=== PATIENT | male | born 1990 | race African-American/Black ===

== ENCOUNTER 2019-07-07 12:43 | Emergency (ER) | payer SELFPAY ==
[~2019-07-07] VITALS: Ht 182.9 cm; Wt 99.6 kg
--- NOTE | 2019-07-07 13:04 | PHYS DOC ---
Adult General Chief Complaint Chief Complaint: ABDOMINAL PAIN HPI HPI Patient is a 28 year old male with history of childhood asthma who presents with complaint of abdominal pain. Patient complaining of right lower quadrant pain that started since this morning when he went to work at 5 AM as a constant and patient pain with radiation to right inguinal area that gradually getting worse and rated his pain 10 over 10. Patient denies nausea, vomiting, diarrhea and constipation, urinary symptoms, fever and chills, history of the same pain. Patient states he did not eat today but did not have chance to eat but feels hu ngry. Patient didn't take any pain medication. Review of Systems Review of Systems Constitutional: Denies fever or chills [] Eyes: Denies change in visual acuity, redness, or eye pain [] HENT: Denies nasal congestion or sore throat [] Respiratory: Denies cough or shortness of breath [] Cardiovascular: No additional information not addressed in HPI [] GI: Reports abdominal pain, nausea, denies vomiting, bloody stools or diarrhea [] : Denies dysuria or hematuria [] Musculoskeletal: Denies back pain or joint pain [] Integument: Denies rash or skin lesions [] Neurologic: Denies headache, focal weakness or sensory changes [] Endocrine: Denies polyuria or polydipsia [] All other systems were reviewed and found to be within normal limits, except as documented in this note. Current Medications Current Medications Current Medications Medications (Trade) Dose Ordered Sig/Aquiles Start Time Stop Time Status Last Admin Dose Admin Fentanyl Citrate (Fentanyl 2ml Vial) 50 mcg 1X ONCE 07/07/19 13:30 07/07/19 13:33 DC 07/07/19 14:00 50 MCG Ondansetron HCl (Zofran) 4 mg 1X ONCE 07/07/19 13:30 07/07/19 13:33 DC 07/07/19 13:30 4 MG Sodium Chloride 1,000 ml @ 1,000 mls/hr Q1H 07/07/19 13:30 07/07/19 14:29 DC 07/07/19 14:01 1,000 MLS/HR Allergies Allergies Allergies Coded Allergies Type Severity Reaction Last Updated Verified Penicillins Allergy Intermediate 07/07/19 Yes amoxicillin Allergy Intermediate 07/07/19 Yes Physical Exam Physical Exam Constitutional: Well developed, well nourished, mild distress, non-toxic appea cindy. [] HENT: Normocephalic, atraumatic. Eyes: PERRLA, EOMI, conjunctiva normal, no discharge. [] Neck: Normal range of motion, no tenderness, supple, no stridor. [] Cardiovascular:Heart rate regular rhythm, no murmur [] Lungs & Thorax: Bilateral breath sounds clear to auscultation [] Abdomen: Bowel sounds normal, soft, right lower quadrant guarding without tenderness, no masses, no pulsatile masses. [] Skin: Warm, dry, no erythema, no rash. [] Back: No tenderness, no CVA tenderness. [] Extremities: No tenderness, no cyanosis, no clubbing, ROM intact, no edema. [] Neurologic: Alert and oriented X 3, no focal deficits noted. [] Psychologic: Affect normal, judgement normal, mood normal. [] Current Patient Data Vital Signs Vital Signs Date Time Temp Pulse Resp B/P (MAP) Pulse Ox O2 Delivery O2 Flow Rate FiO2 07/07/19 14:47 16 99 07/07/19 13:18 97.8 66 115/76 (89) Room Air 97.8 Lab Values Laboratory Tests Test 07/07/19 13:12 07/07/19 14:48 White Blood Count 7.1 x10^3/uL (4.0-11.0) Red Blood Count 4.70 x10^6/uL (4.30-5.70) Hemoglobin 14.0 g/dL (13.0-17.5) Hematocrit 41.7 % (39.0-53.0) Mean Corpuscular Volume 89 fL (79-100) Mean Corpuscular Hemoglobin 30 pg (25-35) Mean Corpuscular Hemoglobin Concent 34 g/dL (31-37) Red Cell Distribution Width 14.1 % (11.5-14.5) Platelet Count 203 x10^3/uL (140-400) Neutrophils (%) (Auto) 71 % (31-73) Lymphocytes (%) (Auto) 17 % (24-48) L Monocytes (%) (Auto) 11 % (0-9) H Eosinophils (%) (Auto) 0 % (0-3) Basophils (%) (Auto) 0 % (0-3) Neutrophils # (Auto) 5.1 x10^3/uL (1.8-7.7) Lymphocytes # (Auto) 1.2 x10^3/uL (1.0-4.8) Monocytes # (Auto) 0.8 x10^3/uL (0.0-1.1) Eosinophils # (Auto) 0.0 x10^3/uL (0.0-0.7) Basophils # (Auto) 0.0 x10^3/uL (0.0-0.2) Sodium Level 142 mmol/L (136-145) Potassium Level 3.6 mmol/L (3.5-5.1) Chloride Level 105 mmol/L (98-107) Carbon Dioxide Level 27 mmol/L (21-32) Anion Gap 10 (6-14) Blood Urea Nitrogen 12 mg/dL (8-26) Creatinine 1.0 mg/dL (0.7-1.3) Estimated GFR (Cockcroft-Gault) 107.7 BUN/Creatinine Ratio 12 (6-20) Glucose Level 84 mg/dL (70-99) Calcium Level 9.7 mg/dL (8.5-10.1) Total Bilirubin 0.3 mg/dL (0.2-1.0) Aspartate Amino Transferase (AST) 24 U/L (15-37) Alanine Aminotransferase (ALT) 29 U/L (16-63) Alkaline Phosphatase 75 U/L (46-116) Total Protein 7.7 g/dL (6.4-8.2) Albumin 4.3 g/dL (3.4-5.0) Albumin/Globulin Ratio 1.3 (1.0-1.7) Lipase 82 U/L (73-393) Urine Collection Type Void Urine Color Yellow Urine Clarity Cloudy Urine pH 6.0 Urine Specific [place] >=1.030 Urine Protein Negative mg/dL (NEG-TRACE) Urine Glucose (UA) Negative mg/dL (NEG) Urine Ketones (Stick) 15 mg/dL (NEG) Urine Blood Negative (NEG) Urine Nitrite Negative (NEG) Urine Bilirubin Negative (NEG) Urine Urobilinogen Dipstick 1.0 mg/dL (0.2 mg/dL) Urine Leukocyte Esterase Negative (NEG) Urine RBC 0 /HPF (0-2) Urine WBC Occ /HPF (0-4) Urine Squamous Epithelial Cells Occ /LPF Urine Bacteria 0 /HPF (0-FEW) Urine Mucus Mod /LPF Urine Opiates Screen Neg (NEG) Urine Methadone Screen Neg (NEG) Urine Barbiturates Neg (NEG) Urine Phencyclidine Screen Neg (NEG) Urine Amphetamine/Methamphetamine Neg (NEG) Urine Benzodiazepines Screen Neg (NEG) Urine Cocaine Screen Neg (NEG) Urine Cannabinoids Screen Pos (NEG) Urine Ethyl Alcohol Neg (NEG) Laboratory Tests 07/07/19 13:12 Laboratory Tests 07/07/19 13:12 EKG EKG [] Radiology/Procedures Radiology/Procedures [facility] [address] [place] [address] IMAGING REPORT Signed PATIENT: LYNN SHRESTHA ACCOUNT: [id number] : 04/16/1960 LOCATION: ER AGE: 59 SEX: F EXAM STATUS: REG ER ORD. PHYSICIAN: HONEY RAJAN MD REASON: cough and shortness of breath PROCEDURE: CHEST PA & LATERAL EXAM: CHEST 2 VIEWS. HISTORY: Cough and shortness of breath. COMPARISON: 11/27/2017. FINDINGS: Frontal and lateral views of the chest are obtained. Hyperinflation is consistent with chronic obstructive pulmonary disease. There are no confluent infiltrates. There is no pneumothorax or pleural effusion. The heart is not enlarged. IMPRESSION: 1. Chronic obstructive pulmonary disease. No confluent infiltrates. Electronically signed by: Selina Mcgarry MD (07/07/2019 1:18 PM) [facility] DICTATED and SIGNED BY: JD MCGARRY MD DATE: 07/07/19 1318 Course & Med Decision Making Course & Med Decision Making Pertinent Labs and Imaging studies reviewed. (See chart for details) Evaluation of patient in ER showed 28-year-old male patient with complaining of right lower quadrant pain since this morning without anorexia and other symptoms. Patient had guarding of right lower quadrant and treated with IV fluid, Zofran and fentanyl with improvement of his pain. CBC, CMP, UA and CT abdomen and pelvis was unremarkable. UDS was positive for marijuana. Plan discharge patient home with diagnosis of muscular abdominal pain. Dragon Disclaimer Dragon Disclaimer This electronic medical record was generated, in whole or in part, using a voice recognition dictation system. Departure Departure Impression: Primary Impression: Right lower quadrant pain Additional Impressions: Muscle strain Marijuana abuse Disposition: HOME, SELF-CARE (at 1534) Condition: IMPROVED Referrals: NO PCP (PCP) Patient Instructions: Abdominal Pain (Nonspecific), Muscle Strain Additional Instructions: Drink plenty of liquids Follow-up with your primary care physician in 3-5 days Return to ER if not getting better Apply ice on the affected area Thank you for visiting [facility]. We appreciate you trusting us with your care. If any additional problems come up don't hesitate to return to visit us. Please follow up with your primary care provider so they can plan additional care if needed and know about the problem that you had. If symptoms worsen come back to the Emergency Department. Any concerning symptoms that start such as chest pain, shortness of air, weakness or numbness on one side of the body, running high fevers or any other concerning symptoms return to the ER. Scripts Naproxen (NAPROSYN) 500 Mg Tablet 1 TAB PO BID for pain, #20 TAB Prov: HONEY RAJAN MD 07/07/19 Cyclobenzaprine Hcl (CYCLOBENZAPRINE HCL) 10 Mg Tablet 1 TAB PO TID, #21 TAB Prov: HONEY RAJAN MD 07/07/19 Problem Qualifiers HONEY RAJAN MD Jul 07, 2019 13:04
[2019-07-07] MEDS ORDERED: ONDANSETRON PF 4 MG/2 ML VIAL. IV ONE (13:30)
[2019-07-07] MEDS ORDERED: IV NORMAL SALINE 1000ML BAG 1,000 ML IV SCH (13:30)
[2019-07-07] MEDS ORDERED: fentaNYL PF VIAL 100 MCG/2 ML VIAL IV ONE (13:30)
[2019-07-07 13:44] LABS: BASO % 0 % (0-3); EOS % 0 % (0-3); HEMATOCRIT 41.7 % (39.0-53.0); LYMPH # 1.2 x10^3/uL (1.0-4.8); LYMPH % 17 % (24-48); MEAN CORPUSCULAR HEMOGLOBIN 30 pg (25-35); MEAN CORPUSCULAR HGB CONC 34 g/dL (31-37); MEAN CORPUSCULAR VOLUME 89 fL (79-100); MONO # 0.8 x10^3/uL (0.0-1.1); MONO % 11 % (0-9); NEUT # 5.1 x10^3/uL (1.8-7.7); NEUT % 71 % (31-73); PLATELET COUNT 203 x10^3/uL (140-400); RED CELL DISTRIBUTION WIDTH 14.1 % (11.5-14.5); WHITE BLOOD COUNT 7.1 x10^3/uL (4.0-11.0)
[2019-07-07 13:49] LABS: CALCIUM 9.7 mg/dL (8.5-10.1); GFR 107.7; POTASSIUM 3.6 mmol/L (3.5-5.1)
[2019-07-07 13:54] LABS: ALBUMIN 4.3 g/dL (3.4-5.0); ALBUMIN/GLOBULIN RATIO 1.3 (1.0-1.7); TOTAL BILIRUBIN 0.3 mg/dL (0.2-1.0); TOTAL PROTEIN 7.7 g/dL (6.4-8.2)
--- NOTE | 2019-07-07 14:02 | RAD ---
CT Abdomen and Pelvis without contrast History: Right lower quadrant pain Technique: Noncontrast CT imaging was performed of the abdomen and pelvis. Multiplanar images are reviewed. Exposure: One or more of the following individualized dose reduction techniques were utilized for this examination: 1. Automated exposure control 2. Adjustment of the mA and/or kV according to patient size 3. Use of iterative reconstruction technique. Comparison: January 13, 2013 Findings: No urolithiasis or hydronephrosis is identified. Accurate evaluation of abdominal visceral organs is limited without intravenous contrast. There is no obvious abnormality of the spleen, liver, or pancreas. Gallbladder is present without obvious intraluminal abnormality by CT. There is no adrenal nodularity. Accurate evaluation of bowel is limited without oral contrast. There is no significant free air, free fluid, bowel dilatation. Normal caliber appendix is visualized without adjacent inflammatory-type change. There are some nonspecific sclerotic foci of the proximal bilateral femurs, may be due to bone islands. Impression: 1. No acute abnormality is identified, no CT evidence of acute appendicitis and no urolithiasis identified. Electronically signed by: Narinder Rivera MD (07/07/2019 1:59 PM) [id number]
[2019-07-07 14:58] LABS: BILIRUBIN,URINE NEGATIVE (NEG); CLARITY,URINE CLOUDY; COLOR,URINE YELLOW; NITRITE,URINE NEGATIVE (NEG); PROTEIN,URINE NEGATIVE (NEG-TRACE)
[2019-07-07 15:07] LABS: BACTERIA,URINE 0 /HPF (0-FEW); RBC,URINE 0 /HPF (0-2); SQUAMOUS EPITHELIAL CELL,UR OCC /LPF; WBC,URINE OCC /HPF (0-4)
[2019-07-07 15:15] LABS: AMPHETAMINE/METHAMPHETAMINE NEG (NEG); BARBITURATES NEG (NEG); BENZODIAZEPINES NEG (NEG); CANNABINOIDS POS (NEG); COCAINE NEG (NEG); METHADONE NEG (NEG); OPIATES NEG (NEG); PHENCYCLIDINE NEG (NEG)
[2019-07-07] MEDS ORDERED: NAPR-683 PO (15:36)
[2019-07-07] MEDS ORDERED: CYCL10TA2 PO (15:36)
[2019-07-07 15:47] VITALS: BP 127/64
== END 2019-07-07 15:47 | disposition home or self-care (01) ==
LOC: ER 12:43
DX: S39.011A Strain of muscle, fascia and tendon of abdomen, initial encounter (principal); R10.31 Right lower quadrant pain; F12.90 Cannabis use, unspecified, uncomplicated; Z88.0 Allergy status to penicillin; Z88.1 Allergy status to other antibiotic agents; X58.XXXA Exposure to other specified factors, initial encounter; Y93.89 Activity, other specified; Y92.89 Other specified places as the place of occurrence of the external cause; Y99.8 Other external cause status
CPT/HCPCS: 36415; 74176; 80053; 80307; 81001; 83690; 85025; 96374; 96375; 99285; J2405; J3010; J7030

== ENCOUNTER 2019-07-10 08:17 | Emergency (ER) | payer SELFPAY ==
[~2019-07-10] VITALS: Ht 182.9 cm; Wt 97.0 kg
[~2019-07-10 08:17] MED LIST: CYCL10TA2 PO; NAPR-683 PO
[2019-07-10] MEDS ORDERED: fentaNYL PF VIAL 100 MCG/2 ML VIAL IVP ONE (09:30)
--- NOTE | 2019-07-10 09:30 | PHYS DOC ---
Past Medical History Past Medical History: Asthma Past Surgical History: No Surgical History Additional Information: SMOKES 1 CIGARETTE A DAY Alcohol Use: Occasionally Adult General Chief Complaint Chief Complaint: FLANK PAIN HPI HPI Patient is a 28 year old male who presents with was here July [address] abd pelvis was done and there were no acute findings. Patient was sent home with Flexeril and Naproxen. He states these medications are not helping. He is here complaining of worsening pain stating that the right lower abdominal pain radiates around into his flank and down into his right groin. He states his whole right lower abdomen side and right flank will have a burning sensation. Rates his pain a 9 out of 10. He states that is sharp and shooting sometimes burning or feel sore. He denies doing any activity out of the usual or injuries. Patient does smoke marijuana. Review of Systems Review of Systems GI: RLQ abdominal pain, denies nausea, vomiting, bloody stools or diarrhea [] Musculoskeletal: Right flank back pain or denies joint pain [] All other systems were reviewed and found to be within normal limits, except as documented in this note. Current Medications Current Medications Current Medications Medications (Trade) Dose Ordered Sig/Aquiles Start Time Stop Time Status Last Admin Dose Admin Acetaminophen/ Hydrocodone Bitart (Lortab 5/325) 1 tab 1X ONCE 07/10/19 11:15 07/10/19 11:16 DC 07/10/19 11:27 1 TAB Fentanyl Citrate (Fentanyl 2ml Vial) 50 mcg 1X ONCE 07/10/19 09:30 07/10/19 09:31 DC 07/10/19 10:03 50 MCG Ketorolac Tromethamine (Toradol 30mg Vial) 30 mg 1X ONCE 07/10/19 11:15 07/10/19 11:16 Cancel Allergies Allergies Allergies Coded Allergies Type Severity Reaction Last Updated Verified Penicillins Allergy Intermediate 07/07/19 Yes amoxicillin Allergy Intermediate 07/07/19 Yes Physical Exam Physical Exam Constitutional: Well developed, well nourished, no acute distress, non-toxic appearance. [] HENT: Normocephalic, atraumatic, bilateral external ears normal, oropharynx moist, no oral exudates, nose normal. [] Eyes: PERRLA, EOMI, conjunctiva normal, no discharge. [] Neck: Normal range of motion, no tenderness, supple, no stridor. [] Cardiovascular:Heart rate regular rhythm, no murmur [] Lungs & Thorax: Bilateral breath sounds clear to auscultation [] Abdomen: Bowel sounds normal, soft, RLQ tenderness, no masses, no pulsatile masses. [] Skin: Warm, dry, no erythema, no rash. [] Back: No tenderness, no CVA tenderness. [] Extremities: No tenderness, no cyanosis, no clubbing, ROM intact, no edema. [] Neurologic: Alert and oriented X 3, normal motor function, normal sensory function, no focal deficits noted. [] Psychologic: Affect normal, judgement normal, mood normal. [] Current Patient Data Vital Signs Vital Signs Date Time Temp Pulse Resp B/P (MAP) Pulse Ox O2 Delivery O2 Flow Rate FiO2 07/10/19 11:27 19 100 Room Air 07/10/19 11:01 54 129/88 (102) 07/10/19 08:52 98.0 98.0 Lab Values Laboratory Tests Test 07/10/19 09:22 07/10/19 10:45 White Blood Count 5.3 x10^3/uL (4.0-11.0) Red Blood Count 4.51 x10^6/uL (4.30-5.70) Hemoglobin 13.2 g/dL (13.0-17.5) Hematocrit 40.2 % (39.0-53.0) Mean Corpuscular Volume 89 fL (79-100) Mean Corpuscular Hemoglobin 29 pg (25-35) Mean Corpuscular Hemoglobin Concent 33 g/dL (31-37) Red Cell Distribution Width 14.5 % (11.5-14.5) Platelet Count 184 x10^3/uL (140-400) Neutrophils (%) (Auto) 69 % (31-73) Lymphocytes (%) (Auto) 19 % (24-48) L Monocytes (%) (Auto) 11 % (0-9) H Eosinophils (%) (Auto) 1 % (0-3) Basophils (%) (Auto) 0 % (0-3) Neutrophils # (Auto) 3.6 x10^3/uL (1.8-7.7) Lymphocytes # (Auto) 1.0 x10^3/uL (1.0-4.8) Monocytes # (Auto) 0.6 x10^3/uL (0.0-1.1) Eosinophils # (Auto) 0.0 x10^3/uL (0.0-0.7) Basophils # (Auto) 0.0 x10^3/uL (0.0-0.2) Sodium Level 144 mmol/L (136-145) Potassium Level 3.9 mmol/L (3.5-5.1) Chloride Level 108 mmol/L (98-107) H Carbon Dioxide Level 31 mmol/L (21-32) Anion Gap 5 (6-14) L Blood Urea Nitrogen 9 mg/dL (8-26) Creatinine 1.0 mg/dL (0.7-1.3) Estimated GFR (Cockcroft-Gault) 107.7 BUN/Creatinine Ratio 9 (6-20) Glucose Level 85 mg/dL (70-99) Calcium Level 8.7 mg/dL (8.5-10.1) Total Bilirubin 0.2 mg/dL (0.2-1.0) Aspartate Amino Transferase (AST) 19 U/L (15-37) Alanine Aminotransferase (ALT) 24 U/L (16-63) Alkaline Phosphatase 61 U/L (46-116) Total Protein 6.6 g/dL (6.4-8.2) Albumin 3.9 g/dL (3.4-5.0) Albumin/Globulin Ratio 1.4 (1.0-1.7) Urine Collection Type Void Urine Color Yellow Urine Clarity Clear Urine pH 8.5 Urine Specific [place] >=1.030 Urine Protein 30 mg/dL (NEG-TRACE) Urine Glucose (UA) Negative mg/dL (NEG) Urine Ketones (Stick) Negative mg/dL (NEG) Urine Blood Negative (NEG) Urine Nitrite Negative (NEG) Urine Bilirubin Negative (NEG) Urine Urobilinogen Dipstick 0.2 mg/dL (0.2 mg/dL) Urine Leukocyte Esterase Negative (NEG) Urine RBC Occ /HPF (0-2) Urine WBC 1-4 /HPF (0-4) Urine Squamous Epithelial Cells Few /LPF Urine Bacteria 0 /HPF (0-FEW) Urine Mucus Marked /LPF Laboratory Tests 07/10/19 09:22 Laboratory Tests 07/10/19 09:22 EKG EKG [] Radiology/Procedures Radiology/Procedures [] Impressions: [facility] [address] [place] [address] IMAGING REPORT Signed PATIENT: DONNIE MERRITT ACCOUNT: [id number] : 1990 LOCATION: ER AGE: 28 SEX: M EXAM STATUS: REG ER ORD. PHYSICIAN: CARITO BAIG APRN REASON: Flank pain PROCEDURE: RENAL COMPLETE BILATERAL EXAM: Renal sonogram. HISTORY: Flank pain. TECHNIQUE: Sonographic imaging of the kidneys and bladder was performed. COMPARISON: CT dated 07/07/2019. FINDINGS: The kidneys are normal in size. No solid or cystic renal lesion is seen. There is no hydronephrosis. The prevoid bladder volume is 17 cc. IMPRESSION: Sonographically unremarkable kidneys. Electronically signed by: Meri Martinez MD (07/10/2019 12:09 PM) [facility] DICTATED and SIGNED BY: MERI MARTINEZ MD DATE: 07/10/19 1200 Course & Med Decision Making Course & Med Decision Making Alert and oriented. States a full clear sentences. Skin pink warm and dry. Abdomen is soft but tender at right lower quadrant. No CVA tenderness. He denies any testicular pain, nausea, vomiting, diarrhea, fever, no discharge, dysuria, chest pain, soa, dizziness, headache, visula changes, weakness. Blood work unremarkable. Urinalysis unremarkable. Renal ultrasound unremarkable. Patient to follow up with primary care provider. I have spoken with Dr. Kern about this patient's exam findings and care plan. Exam: Scrotum: Normal Hernia: None Testes/Epid: Non-tender w/ normal lie Cremaster: Reflex intact Lymph: No inguinal lymphadenopathy Discharge: None Dragon Disclaimer Dragon Disclaimer This electronic medical record was generated, in whole or in part, using a voice recognition dictation system. Departure Departure Impression: Primary Impression: Flank pain Additional Impression: Abdominal pain Disposition: HOME, SELF-CARE Condition: STABLE Referrals: NO PCP (PCP) Patient Instructions: Abdominal Pain (Nonspecific), Flank Pain, [id number] Additional Instructions: Follow-up with her primary care provider. Continue taking medications such as the Flexeril and naproxen as prescribed. Drink plenty of fluids. Problem Qualifiers Additional Impression: Abdominal pain Abdominal location: right lower quadrant Qualified Codes: R10.31 - Right lower quadrant pain CARITO BAIG APRN Jul 10, 2019 09:30
[2019-07-10 09:43] LABS: BASO % 0 % (0-3); EOS % 1 % (0-3); HEMATOCRIT 40.2 % (39.0-53.0); HEMOGLOBIN 13.2 g/dL (13.0-17.5); LYMPH % 19 % (24-48); MEAN CORPUSCULAR HEMOGLOBIN 29 pg (25-35); MEAN CORPUSCULAR HGB CONC 33 g/dL (31-37); MEAN CORPUSCULAR VOLUME 89 fL (79-100); MONO # 0.6 x10^3/uL (0.0-1.1); MONO % 11 % (0-9); NEUT # 3.6 x10^3/uL (1.8-7.7); NEUT % 69 % (31-73); PLATELET COUNT 184 x10^3/uL (140-400); RED BLOOD COUNT 4.51 x10^6/uL (4.30-5.70); RED CELL DISTRIBUTION WIDTH 14.5 % (11.5-14.5); WHITE BLOOD COUNT 5.3 x10^3/uL (4.0-11.0)
[2019-07-10 09:51] LABS: CALCIUM 8.7 mg/dL (8.5-10.1); GFR 107.7; POTASSIUM 3.9 mmol/L (3.5-5.1)
[2019-07-10 09:59] LABS: ALBUMIN 3.9 g/dL (3.4-5.0); ALBUMIN/GLOBULIN RATIO 1.4 (1.0-1.7); TOTAL BILIRUBIN 0.2 mg/dL (0.2-1.0); TOTAL PROTEIN 6.6 g/dL (6.4-8.2)
[2019-07-10 11:10] LABS: BILIRUBIN,URINE NEGATIVE (NEG); CLARITY,URINE CLEAR; COLOR,URINE YELLOW; NITRITE,URINE NEGATIVE (NEG); PH,URINE 8.5; PROTEIN,URINE 30 mg/dL (NEG-TRACE); UROBILINOGEN,URINE 0.2 mg/dL (0.2 mg/dL)
[2019-07-10] MEDS ORDERED: HYDROcodone/APAP 5/325MG 1 TAB TABLET PO ONE (11:15)
[2019-07-10] MEDS ORDERED: KETOROLAC 30 MG/ML VIAL. IVP ONE (11:15)
[2019-07-10 11:32] LABS: SQUAMOUS EPITHELIAL CELL,UR FEW /LPF
[2019-07-10 11:33] LABS: BACTERIA,URINE 0 /HPF (0-FEW); RBC,URINE OCC /HPF (0-2)
--- NOTE | 2019-07-10 12:12 | RAD ---
EXAM: Renal sonogram. HISTORY: Flank pain. TECHNIQUE: Sonographic imaging of the kidneys and bladder was performed. COMPARISON: CT dated 07/07/2019. FINDINGS: The kidneys are normal in size. No solid or cystic renal lesion is seen. There is no hydronephrosis. The prevoid bladder volume is 17 cc. IMPRESSION: Sonographically unremarkable kidneys. Electronically signed by: Meri Foss MD (07/10/2019 12:09 PM) [facility] [place]
[2019-07-10 12:47] VITALS: BP 137/81
== END 2019-07-10 12:59 | disposition home or self-care (01) ==
LOC: ER 08:17
DX: R10.31 Right lower quadrant pain (principal); J45.909 Unspecified asthma, uncomplicated; F17.210 Nicotine dependence, cigarettes, uncomplicated; Z88.0 Allergy status to penicillin; Z88.1 Allergy status to other antibiotic agents
CPT/HCPCS: 36415; 76770; 80053; 81001; 85025; 96374; 99285; J3010

== ENCOUNTER 2019-10-19 10:23 | Emergency (ER) | payer SELFPAY ==
[~2019-10-19] VITALS: Ht 180.3 cm; Wt 102.0 kg
[2019-10-19 10:36] VITALS: BP 133/61
[2019-10-19] MEDS ORDERED: CLIN300C8 PO (10:51)
--- NOTE | 2019-10-19 10:51 | PHYS DOC ---
Past Medical History Past Medical History: Asthma, Other Additional Past Medical Histor: TENSION HEADACHES Past Surgical History: No Surgical History Smoking Status: Former Smoker Alcohol Use: Occasionally General Adult EDM: Chief Complaint: ABSCESS HPI: HPI: Patient is a 28-year-old male who presents with what he describes as an abscess in his left upper inner thigh. He states it is been draining recently. He denies any pain with a bowel movement. He has not had any fever chills or sweats. [] Review of Systems: Review of Systems: Constitutional: Denies fever or chills. [] Eyes: Denies change in visual acuity. [] HENT: Denies nasal congestion or sore throat. [] Respiratory: Denies cough or shortness of breath. [] Cardiovascular: Denies chest pain or edema. [] GI: Denies abdominal pain, nausea, vomiting, bloody stools or diarrhea. [] : Denies dysuria. [] Musculoskeletal: Denies back pain or joint pain. [] Integument: Per HPI [] Neurologic: Denies headache, focal weakness or sensory changes. [] Endocrine: Denies polyuria or polydipsia. [] Lymphatic: Denies swollen glands. [] Psychiatric: Denies depression or anxiety. [] Heart Score: Risk Factors: Risk Factors: DM, Current or recent (<one month) smoker, HTN, HLP, family history of CAD, obesity. Risk Scores: Score 0 - 3: 2.5% MACE over next 6 weeks - Discharge Home Score 4 - 6: 20.3% MACE over next 6 weeks - Admit for Clinical Observation Score 7 - 10: 72.7% MACE over next 6 weeks - Early Invasive Strategies Allergies: Allergies: Allergies Coded Allergies Type Severity Reaction Last Updated Verified Penicillins Allergy Intermediate 07/07/19 Yes amoxicillin Allergy Intermediate 07/07/19 Yes Physical Exam: PE: Constitutional: Well developed, well nourished, no acute distress, non-toxic appearance. [] HENT: Normocephalic, atraumatic, bilateral external ears normal, oropharynx moist, no oral exudates, nose normal. [] Eyes: PERRLA, EOMI, conjunctiva normal, no discharge. [] Neck: Normal range of motion, no tenderness, supple, no stridor. [] Cardiovascular:Heart rate regular rhythm, no murmur [] Lungs & Thorax: Bilateral breath sounds clear to auscultation [] Abdomen: Bowel sounds normal, soft, no tenderness, no masses, no pulsatile masses. [] Skin: I did not appreciate any significance abscess in the area there was nothing tender or indurated in the perineal or perirectal area [] Back: No tenderness, no CVA tenderness. [] Extremities: No tenderness, no cyanosis, no clubbing, ROM intact, no edema. [] Neurologic: Alert and oriented X 3, normal motor function, normal sensory function, no focal deficits noted. [] Psychologic: Affect normal, judgement normal, mood normal. [] Current Patient Data: Vital Signs: Vital Signs Date Time Temp Pulse Resp B/P (MAP) Pulse Ox O2 Delivery O2 Flow Rate FiO2 10/19/19 10:36 97.7 83 18 133/61 (85) 97 Room Air 97.7 EKG: EKG: [] Radiology/Procedures: Radiology/Procedures: [] Course & Med Decision Making: Course & Med Decision Making Pertinent Labs and Imaging studies reviewed. (See chart for details) [] Dragon Disclaimer: Dragon Disclaimer: This electronic medical record was generated, in whole or in part, using a voice recognition dictation system. Departure Departure Impression: Primary Impression: Abscess of left leg Disposition: HOME, SELF-CARE Condition: STABLE Referrals: NO PCP (PCP) Patient Instructions: Abscess Additional Instructions: Warm soaks are beneficial. It is extremely important that you take your antibiotics. If the pain or swelling worsens please return to the emergency de partment as this could be a sign that it needs to be opened with a procedure called an incision and drainage Scripts Clindamycin Hcl (CLINDAMYCIN HCL) 300 Mg Capsule 1 CAP PO QID for Infection, #40 CAP Prov: RUBIO BALL DO 10/19/19 RUBIO BALL DO October 19, 2019 10:51
[2019-10-19] MEDS ORDERED: AZITHROMYCIN 250 MG TABLET. PO ONE (11:15)
[2019-10-19] MEDS ORDERED: cefTRIAXone IM 250 MG VIAL IM ONE (11:15)
== END 2019-10-19 12:00 | disposition home or self-care (01) ==
LOC: ER 10:23
DX: L02.416 Cutaneous abscess of left lower limb (principal); J45.909 Unspecified asthma, uncomplicated; Z87.891 Personal history of nicotine dependence; Z88.1 Allergy status to other antibiotic agents; Z88.0 Allergy status to penicillin
CPT/HCPCS: 96372; 99283; J0696

== ENCOUNTER 2019-11-21 19:30 | Emergency (ER) | payer SELFPAY ==
[~2019-11-21] VITALS: Ht 182.9 cm; Wt 101.0 kg
[~2019-11-21 19:30] MED LIST changes: +CLIN300C8 PO
[2019-11-21 19:53] VITALS: BP 132/60
[2019-11-21 20:14] LABS: BASO % 0 % (0-3); EOS # 0.1 x10^3/uL (0.0-0.7); EOS % 1 % (0-3); HEMATOCRIT 40.4 % (39.0-53.0); HEMOGLOBIN 13.6 g/dL (13.0-17.5); LYMPH # 1.7 x10^3/uL (1.0-4.8); LYMPH % 22 % (24-48); MEAN CORPUSCULAR HEMOGLOBIN 31 pg (25-35); MEAN CORPUSCULAR HGB CONC 34 g/dL (31-37); MEAN CORPUSCULAR VOLUME 91 fL (79-100); MONO # 0.5 x10^3/uL (0.0-1.1); MONO % 6 % (0-9); NEUT # 5.7 x10^3/uL (1.8-7.7); NEUT % 71 % (31-73); PLATELET COUNT 185 x10^3/uL (140-400); RED BLOOD COUNT 4.44 x10^6/uL (4.30-5.70); RED CELL DISTRIBUTION WIDTH 14.2 % (11.5-14.5); WHITE BLOOD COUNT 8.1 x10^3/uL (4.0-11.0)
[2019-11-21] MEDS ORDERED: IV NORMAL SALINE 1000ML BAG 1,000 ML IV ONE (20:15)
[2019-11-21] MEDS ORDERED: ONDANSETRON PF 4 MG/2 ML VIAL. IV ONE (20:15)
[2019-11-21 20:16] LABS: BILIRUBIN,URINE NEGATIVE (NEG); CLARITY,URINE TURBID; COLOR,URINE YELLOW; NITRITE,URINE NEGATIVE (NEG); PROTEIN,URINE NEGATIVE (NEG-TRACE)
[2019-11-21 20:20] LABS: BACTERIA,URINE 0 /HPF (0-FEW); RBC,URINE 0 /HPF (0-2)
[2019-11-21 20:21] LABS: AMORPHOUS SEDIMENT,UR PRESENT /HPF; SQUAMOUS EPITHELIAL CELL,UR OCC /LPF
[2019-11-21 20:25] LABS: CALCIUM 8.2 mg/dL (8.5-10.1); CREATININE 1.3 mg/dL (0.7-1.3); GFR 79.5; POTASSIUM 3.6 mmol/L (3.5-5.1)
[2019-11-21 20:30] LABS: ALBUMIN 3.1 g/dL (3.4-5.0); ALBUMIN/GLOBULIN RATIO 1.2 (1.0-1.7); TOTAL BILIRUBIN 0.1 mg/dL (0.2-1.0); TOTAL PROTEIN 5.7 g/dL (6.4-8.2)
[2019-11-21] MEDS ORDERED: ONDA-84 PO (21:47)
[2019-11-21] MEDS ORDERED: VENTOLIN HFA18 GM INH (21:47)
[2019-11-21] MEDS ORDERED: AZIT250T6 PO (21:47)
--- NOTE | 2019-11-21 21:49 | PHYS DOC ---
Past Medical History Past Medical History: Asthma, Bronchitis, IBS Additional Past Medical Histor: TENSION HEADACHES Past Surgical History: No Surgical History Smoking Status: Current Every Day Smoker Alcohol Use: Occasionally General Adult EDM: Chief Complaint: ABDOMINAL PAIN HPI: HPI: Patient is a 28 year old AA male who presents to the emergency department with complaints of intermittent abdominal pain for the last 2 weeks with nausea, vomiting, and diarrhea for the last 2 to 3 days, and feeling like he cannot catch his breath for the last 2 days. Patient states that he began not feeling well approximately 3 weeks ago. He reported feeling fatigued and achy at that time. He denies any recent travel or contact with anyone with known COVID-19 diagnosis. Patient states he currently lives in a hotel and he is working [employer]. He reports that the pain in his abdomen is a sharp crampy pain that happens all over his entire abdomen. He denies any chest pain, palpitations, sore throat, bloody stools, hematemesis, or rash. Patient currently rates his abdominal pain a 10 out of 10 on the pain scale he denies any alleviating factors and reports that the pain just comes and goes in waves. Review of Systems: Review of Systems: Constitutional: Reports tactile fevers recently Eyes: Denies change in visual acuity. [] HENT: Denies nasal congestion or sore throat. [] Respiratory: Reports dry cough and shortness of breath. [] Cardiovascular: Denies chest pain or edema. [] GI: See HPI : Denies dysuria. [] Musculoskeletal: Reports body aches Integument: Denies rash. [] Neurologic: Denies headache, focal weakness or sensory changes. [] Lymphatic: Denies swollen glands. [] Psychiatric: Denies depression or anxiety. [] Heart Score: Risk Factors: Risk Factors: DM, Current or recent (<one month) smoker, HTN, HLP, family history of CAD, obesity. Risk Scores: Score 0 - 3: 2.5% MACE over next 6 weeks - Discharge Home Score 4 - 6: 20.3% MACE over next 6 weeks - Admit for Clinical Observation Score 7 - 10: 72.7% MACE over next 6 weeks - Early Invasive Strategies Current Medications: Current Medications Medications (Trade) Dose Ordered Sig/Aquiles Start Time Stop Time Status Last Admin Dose Admin Ondansetron HCl (Zofran) 4 mg 1X ONCE 11/21/19 20:15 11/21/19 20:16 DC 11/21/19 20:14 4 MG Sodium Chloride 1,000 ml @ 1,000 mls/hr 1X ONCE 11/21/19 20:15 11/21/19 21:14 DC 11/21/19 20:14 1,000 MLS/HR Allergies: Allergies: Allergies Coded Allergies Type Severity Reaction Last Updated Verified Penicillins Allergy Intermediate 07/07/19 Yes amoxicillin Allergy Intermediate 07/07/19 Yes Physical Exam: PE: Constitutional: Well developed, well nourished, mild distress, ill appearance HENT: Normocephalic, atraumatic, bilateral external ears normal, oropharynx moist, no oral exudates, nose normal. [] Eyes: PERRLA, EOMI, conjunctiva normal, no discharge. [] Neck: Normal range of motion, no stridor. [] Cardiovascular:Heart rate regular rhythm Lungs & Thorax: Bilateral breath sounds clear to auscultation in upper lobes bilaterally, diminished with expiratory wheezes in bilateral lower lobes, no retractions, regular rate [] Abdomen: Bowel sounds normal, soft, no tenderness, no masses, no pulsatile masses. [] Skin: Warm, dry, no erythema, no rash. [] Back: No tenderness, no CVA tenderness. [] Extremities: No cyanosis, no clubbing, ROM intact, no edema. [] Neurologic: Alert and oriented X 3, no focal deficits noted. [] Psychologic: Affect normal, judgement normal, mood normal. [] Current Patient Data: Labs: Laboratory Tests Test 11/21/19 19:39 11/21/19 19:52 Urine Collection Type Unknown Urine Color Yellow Urine Clarity Turbid Urine pH 8.0 (<5.0-8.0) Urine Specific Dunellen 1.025 (1.000-1.030) Urine Protein Negative mg/dL (NEG-TRACE) Urine Glucose (UA) Negative mg/dL (NEG) Urine Ketones (Stick) Negative mg/dL (NEG) Urine Blood Negative (NEG) Urine Nitrite Negative (NEG) Urine Bilirubin Negative (NEG) Urine Urobilinogen Dipstick 1.0 mg/dL (0.2 mg/dL) Urine Leukocyte Esterase Negative (NEG) Urine RBC 0 /HPF (0-2) Urine WBC 1-4 /HPF (0-4) Urine Squamous Epithelial Cells Occ /LPF Urine Amorphous Sediment Present /HPF Urine Bacteria 0 /HPF (0-FEW) Urine Mucus Mod /LPF White Blood Count 8.1 x10^3/uL (4.0-11.0) Red Blood Count 4.44 x10^6/uL (4.30-5.70) Hemoglobin 13.6 g/dL (13.0-17.5) Hematocrit 40.4 % (39.0-53.0) Mean Corpuscular Volume 91 fL (79-100) Mean Corpuscular Hemoglobin 31 pg (25-35) Mean Corpuscular Hemoglobin Concent 34 g/dL (31-37) Red Cell Distribution Width 14.2 % (11.5-14.5) Platelet Count 185 x10^3/uL (140-400) Neutrophils (%) (Auto) 71 % (31-73) Lymphocytes (%) (Auto) 22 % (24-48) L Monocytes (%) (Auto) 6 % (0-9) Eosinophils (%) (Auto) 1 % (0-3) Basophils (%) (Auto) 0 % (0-3) Neutrophils # (Auto) 5.7 x10^3/uL (1.8-7.7) Lymphocytes # (Auto) 1.7 x10^3/uL (1.0-4.8) Monocytes # (Auto) 0.5 x10^3/uL (0.0-1.1) Eosinophils # (Auto) 0.1 x10^3/uL (0.0-0.7) Basophils # (Auto) 0.0 x10^3/uL (0.0-0.2) Sodium Level 142 mmol/L (136-145) Potassium Level 3.6 mmol/L (3.5-5.1) Chloride Level 107 mmol/L (98-107) Carbon Dioxide Level 27 mmol/L (21-32) Anion Gap 8 (6-14) Blood Urea Nitrogen 10 mg/dL (8-26) Creatinine 1.3 mg/dL (0.7-1.3) Estimated GFR (Cockcroft-Gault) 79.5 BUN/Creatinine Ratio 8 (6-20) Glucose Level 102 mg/dL (70-99) H Calcium Level 8.2 mg/dL (8.5-10.1) L Total Bilirubin 0.1 mg/dL (0.2-1.0) L Aspartate Amino Transferase (AST) 22 U/L (15-37) Alanine Aminotransferase (ALT) 29 U/L (16-63) Alkaline Phosphatase 70 U/L (46-116) Total Protein 5.7 g/dL (6.4-8.2) L Albumin 3.1 g/dL (3.4-5.0) L Albumin/Globulin Ratio 1.2 (1.0-1.7) Laboratory Tests 11/21/19 19:52 Laboratory Tests 11/21/19 19:52 Vital Signs: Vital Signs Date Time Temp Pulse Resp B/P (MAP) Pulse Ox O2 Delivery O2 Flow Rate FiO2 11/21/19 19:53 98.7 79 24 132/60 (84) 99 Room Air 98.7 EKG: EKG: [] Radiology/Procedures: Radiology/Procedures: PROCEDURE: CHEST AP ONLY Exam: Chest one view INDICATION: Cough TECHNIQUE: Frontal view of the chest Comparisons: None FINDINGS: The cardiomediastinal silhouette and pulmonary vessels are within normal limits. The lung and pleural spaces are clear. IMPRESSION: No acute cardiopulmonary process. Course & Med Decision Making: Course & Med Decision Making Pertinent Labs and Imaging studies reviewed. (See chart for details) Patient is a 28-year-old -Swiss male who presented to the emergency department with complaints of not feeling well for 3 weeks, intermittent abdominal pain for 2 weeks, and nausea/vomiting/ diarrhea and shortness of breath for the last 2 to 3 days. Work-up included a CBC, CMP, and UA that revealed no acute findings. He was given a liter of normal saline, and 4 mg of Zofran. He reported relief of nausea after these medications. Based off of patient's symptoms and length of the duration of his illness COVID- 19 cannot be ruled out. Chest x-ray reveals no acute findings. COVID-19 test is pending. Prescription written for a Z-Gallo, albuterol inhaler, and Zofran. Patient instructed to go home quarantine until he knows the results of his COVID-19 test. Recommend clear fluids for 24 hours then advance diet to bland foods as tolerated. Follow-up with primary care doctor if symptoms persist, return to the ER symptoms worsen. Patient verbalized an understanding of home care, medications, follow-up, and return to ED instructions and was in agreement with the plan of care. COVID-19 CRITERIA: The patient was evaluated during the global COVID-19 pandemic, and that diagnosis was suspected/considered upon their initial presentation. Their evaluation, treatment and testing was consistent with current guidelines for patients who present with complaints or symptoms that may be related to COVID-19. [] Dragon Disclaimer: Dragon Disclaimer: This electronic medical record was generated, in whole or in part, using a voice recognition dictation system. Departure Departure Impression: Primary Impression: Abdominal pain Qualified Codes: R10.84 - Generalized abdominal pain Additional Impressions: Nausea, vomiting, and diarrhea Person under investigation for COVID-19 Bilateral wheezing Viral respiratory illness Disposition: HOME, SELF-CARE Condition: STABLE Referrals: LESLI WEI MD (PCP) Patient Instructions: Diet for Diarrhea, Adult, Nausea and Vomiting, Easy-to-Re ad, Upper Respiratory Infection, Adult, [id number], Viral Infections, [id number] Additional Instructions: Fill the prescriptions and take them as directed. Thank you for visiting [facility]. We appreciate you trusting us with your care. If any additional problems come up please don't hesitate to return to visit us. Follow up with your primary care provider so they can plan additional care if needed and know about the problem that you had today. If symp toms worsen come back to the Emergency Department. Any concerning symptoms that start such as chest pain, shortness of air, weakness or numbness on one side of the body, running high fevers or any other concerning symptoms return to the ER. You have a viral syndrome which may include symptoms like muscle aches, fevers, chills, runny nose, cough, sneezing, sore throat, nausea, vomiting, or diarrhea. One of the potential viruses that you may have is SARS-CoV-2, the virus that causes COVID-19, also known as the Coronavirus. You are just as likely to have a different viral infection such as the common cold, flu, etc. Most patients with the Coronavirus have mild symptoms and recover on their own. Resting, staying hydrated, and sleep based on known cases can be helpful. As of todays visit, you are well enough to go home and treat your symptoms with oral fluids and over the counter medications. Coronavirus testing was performed today the results will not be available for possibly up to 3-4 days. If your result is positive you will be contacted. You need to isolate and quarantine yourself until the results of the test are known. Please follow the following precautions at home: 1. Stay home except to get medical care. 2. As advised by the CDC, we recommend that you stay in your home and minimize contact with other people. We do not want you to spread the infection. 3. Those who are older or have significant medical issues may have more severe symptoms from this infection. We recommend self-isolation FOR AT LEAST 7 DAYS after your 1st day of symptoms. AFTER you feel better please wait AT LEAST ANOTHER WEEK before returning to regular activities and being around other people. 4. IF you become sicker and have difficulty breathing, chest pain, are unable to eat/drink, severe vomiting, diarrhea, or weakness you may need to return to the Emergency Department. 5. You should restrict activities outside of your home, except for getting medical care. DO NOT go to work, school, or public areas. Avoid using public transportation, ride sharing, or taxis. 6. Separate yourself from other people in your home. You should use a separate bathroom if possible. 7. Avoid sharing personal household items such as dishes, cups, eating utensils, towels, etc. 8. Clean all high touch surfaces every day (door knobs, counter tops, etc). Use a household cleaning spray or wipe per label instructions. 9. Clean your hands often. Wash your hands with soap and water for at least 20 seconds. 10. Cover your mouth and nose when you cough or sneeze. 11. Throw used tissues in the trash and immediately wash your hands. For additional resources please visit the CDC website or the [place] [facility] (714-377-5497), you may also call 211 for further information. Scripts Ondansetron Hcl (ONDANSETRON HCL) 4 Mg Tablet 1 TAB PO PRN Q6HRS PRN for NAUSEA/VOMITING for 3 Days, #10 TAB 0 Refills Prov: DALTON RAMSEY POLITICAL REPORTER 11/21/19 Azithromycin (AZITHROMYCIN TABLET) 250 Mg Tablet 1 PKG PO UD for 5 Days, #6 TAB 0 Refills 2 the first day followed by 1 for days 2-5 Prov: DALTON RAMSEY APRN 11/21/19 Albuterol Sulfate (VENTOLIN HFA INHALER) 18 Gm Hfa.aer.ad 2 PUFF INH Q4HRS PRN for WHEEZING for 30 Days, #1 INHALER 0 Refills Prov: DALTON RAMSEY APRN 11/21/19 Justicifation of Admission Dx: Justifications for Admission: Justification of Admission Dx: N/A COVID-19 Assessment: COVID-19 Patient Risks: Age 65 or older: No Sign of co-morbidity: No Exp to person + for COVID: No Exp to PUI: No Travel from affected area: No Lower respiratory symptoms: Yes Fever: No PPE Use: Full PPE with N95 mask or PAPR: Yes DALTON RAMSEY APRN Nov 21, 2019 21:49
--- NOTE | 2019-11-21 21:49 | RAD ---
Exam: Chest one view INDICATION: Cough TECHNIQUE: Frontal view of the chest Comparisons: None FINDINGS: The cardiomediastinal silhouette and pulmonary vessels are within normal limits. The lung and pleural spaces are clear. IMPRESSION: No acute cardiopulmonary process. Electronically signed by: Roc Matta MD (11/21/2019 9:46 PM) [id number]
== END 2019-11-21 22:17 | disposition home or self-care (01) ==
LOC: ER 19:30
DX: R10.84 Generalized abdominal pain (principal); Z20.828 Contact with and (suspected) exposure to other viral communicable diseases; R11.2 Nausea with vomiting, unspecified; R19.7 Diarrhea, unspecified; B33.8 Other specified viral diseases; J45.909 Unspecified asthma, uncomplicated; F17.200 Nicotine dependence, unspecified, uncomplicated; Z88.0 Allergy status to penicillin; Z88.1 Allergy status to other antibiotic agents
CPT/HCPCS: 36415; 71045; 80053; 81001; 85025; 96361; 96374; 99284; J2405; J7030; U0003

== ENCOUNTER 2020-01-30 13:21 | Emergency (ER) | payer SELFPAY ==
[~2020-01-30] VITALS: Ht 182.9 cm; Wt 105.0 kg
[~2020-01-30 13:21] MED LIST changes: +AZIT250T6 PO; +ONDA-84 PO; +VENTOLIN HFA18 GM INH
[2020-01-30] MEDS ORDERED: MORPHINE SULFATE 4 MG/ML VIAL. IV ONE (13:45)
[2020-01-30] MEDS ORDERED: ONDANSETRON PF 4 MG/2 ML VIAL. IVP ONE (13:45)
--- NOTE | 2020-01-30 13:50 | PHYS DOC ---
Past Medical History Past Medical History: Asthma, Bronchitis, IBS Additional Past Medical Histor: TENSION HEADACHES Past Surgical History: No Surgical History Smoking Status: Never Smoker Alcohol Use: None General Adult EDM: Chief Complaint: CHEST PAIN HPI: HPI: Patient is a 29 year old male presents with a chief complaint of left-sided chest pain that began 2 hours ago. Pain described as sharp worse with deep breaths and radiates to his left arm. Patient has some throbbing pain still persistent left arm. Patient has some shortness of breath. Pain is currently severe in intensity. Patient does have shortness of breath that feels like maybe his asthma. Review of Systems: Review of Systems: Constitutional: Denies fever or chills. [] Eyes: Denies change in visual acuity. [] HENT: Denies nasal congestion or sore throat. [] Respiratory: Denies cough but has shortness of breath. [] Cardiovascular: Complains of chest pain but no edema GI: Complains of left upper quadrant abdominal pain, but no nausea, vomiting, bloody stools or diarrhea. [] : Denies dysuria. [] Musculoskeletal: Denies back pain or joint pain. [] Integument: Denies rash. [] Neurologic: Denies headache, focal weakness or sensory changes. [] Endocrine: Denies polyuria or polydipsia. [] Lymphatic: Denies swollen glands. [] Psychiatric: Denies depression or anxiety. [] Heart Score: HEART Score for Chest Pain: HEART Score for Chest Pain Response (Comments) Value History Slighlty/Non-Suspicious 0 ECG Nonspecific Repolarizatio 1 Age < 45 0 Risk Factors 1 or 2 Risk Factors 1 Total 2 Risk Factors: Risk Factors: DM, Current or recent (<one month) smoker, HTN, HLP, family history of CAD, obesity. Risk Scores: Score 0 - 3: 2.5% MACE over next 6 weeks - Discharge Home Score 4 - 6: 20.3% MACE over next 6 weeks - Admit for Clinical Observation Score 7 - 10: 72.7% MACE over next 6 weeks - Early Invasive Strategies Family History: Family History: Heart disease in the 40s Allergies: Allergies: Allergies Coded Allergies Type Severity Reaction Last Updated Verified Penicillins Allergy Intermediate 07/07/19 Yes amoxicillin Allergy Intermediate 07/07/19 Yes Physical Exam: PE: Constitutional: Well developed, well nourished, no acute distress, non-toxic appearance. [] HENT: Normocephalic, atraumatic, bilateral external ears normal, no trismus nose normal. [] Eyes: PERRLA, EOMI, conjunctiva normal, no discharge. [] Neck: Normal range of motion, no tenderness, supple, no stridor. [] Cardiovascular:Heart rate regular rhythm, peripheral pulses intact, cap refill brisk Lungs & Thorax: No respiratory distress, diminished breath sounds, tender to palpate left chest wall Abdomen: soft, tender to palpate left upper quadrant without guarding or rebound, no masses, no pulsatile masses. [] Skin: Warm, dry, no erythema, no rash. [] Back: No tenderness, no CVA tenderness. [] Extremities: No tenderness, no cyanosis, no clubbing, ROM intact, no edema. [] Neurologic: Alert and oriented X 3, normal motor function, normal sensory function, no focal deficits noted. [] Psychologic: Affect normal, judgement normal, mood normal. [] Current Patient Data: Labs: Laboratory Tests Test 01/30/20 13:55 White Blood Count 7.9 x10^3/uL Red Blood Count 4.36 x10^6/uL Hemoglobin 13.2 g/dL Hematocrit 39.8 % Mean Corpuscular Volume 91 fL Mean Corpuscular Hemoglobin 30 pg Mean Corpuscular Hemoglobin Concent 33 g/dL Red Cell Distribution Width 13.4 % Platelet Count 172 x10^3/uL Neutrophils (%) (Auto) 75 % Lymphocytes (%) (Auto) 18 % Monocytes (%) (Auto) 7 % Eosinophils (%) (Auto) 1 % Basophils (%) (Auto) 0 % Neutrophils # (Auto) 5.9 x10^3/uL Lymphocytes # (Auto) 1.4 x10^3/uL Monocytes # (Auto) 0.5 x10^3/uL Eosinophils # (Auto) 0.0 x10^3/uL Basophils # (Auto) 0.0 x10^3/uL Prothrombin Time 12.2 SEC Prothromb Time International Ratio 0.9 Activated Partial Thromboplast Time 27 SEC Sodium Level 142 mmol/L Potassium Level 3.8 mmol/L Chloride Level 108 mmol/L Carbon Dioxide Level 28 mmol/L Anion Gap 6 Blood Urea Nitrogen 6 mg/dL Creatinine 1.1 mg/dL Estimated GFR (Cockcroft-Gault) 95.8 BUN/Creatinine Ratio 5 Glucose Level 97 mg/dL Calcium Level 8.1 mg/dL Total Bilirubin 0.2 mg/dL Aspartate Amino Transf (AST/SGOT) 22 U/L Alanine Aminotransferase (ALT/SGPT) 25 U/L Alkaline Phosphatase 64 U/L Troponin I Quantitative < 0.017 ng/mL TH-Ogv-P-Type Natriuretic Peptide 47 pg/mL Total Protein 5.6 g/dL Albumin 2.8 g/dL Albumin/Globulin Ratio 1.0 Lipase 155 U/L Current Medications Medications (Trade) Dose Ordered Sig/Aquiles Route PRN Reason Start Time Stop Time Status Last Admin Dose Admin Morphine Sulfate (Morphine Sulfate) 4 mg 1X ONCE IV 01/30/20 13:45 01/30/20 13:58 DC 01/30/20 14:19 Ondansetron HCl (Zofran) 4 mg 1X ONCE IVP 01/30/20 13:45 01/30/20 13:58 DC 01/30/20 14:17 Iohexol (Omnipaque 350 Mg/ml) 100 ml 1X ONCE IV 01/30/20 15:00 01/30/20 15:01 DC 01/30/20 15:20 Info (CONTRAST GIVEN -- Rx MONITORING) 1 each PRN DAILY PRN MC SEE COMMENTS 01/30/20 15:00 02/01/20 14:59 Enoxaparin Sodium (Lovenox 100mg Syringe) 100 mg 1X ONCE SQ 01/30/20 16:30 01/30/20 16:31 DC Vital Signs: Vital Signs Date Time Temp Pulse Resp B/P (MAP) Pulse Ox O2 Delivery O2 Flow Rate FiO2 01/30/20 13:31 98.6 65 20 130/59 (82) 99 Room Air 98.6 EKG: EKG: [] EKG interpreted by me normal sinus rhythm with a rate of 62 normal axis normal intervals ST elevations diffusely consistent with early repolarization Radiology/Procedures: Radiology/Procedures: [][facility] [address] [place] [address] IMAGING REPORT Signed PATIENT: DONNIE MERRITT ACCOUNT: [id number] : 1990 LOCATION: ER AGE: 29 SEX: M EXAM STATUS: PRE ER ORD. PHYSICIAN: BISHOP DICKERSON MD REASON: LEFT CP PROCEDURE: PORTABLE CHEST 1V EXAMINATION: PORTABLE CHEST 1V CLINICAL HISTORY: Reason: LEFT CP / Spl. Instructions: / History: EXAM DATE/TIME: 01/30/2020 1:44 PM COMPARISON: 11/21/2019 FINDINGS: Lines, tubes, and devices: None. Cardiomediastinal silhouette: Within normal limits. Lungs and pleura: No evidence of focal airspace consolidation or pleural effusion. Pulmonary vasculature unremarkable. Bones and soft tissues: No acute osseous abnormality. IMPRESSION: No evidence of acute cardiopulmonary abnormality or significant interval change. Electronically signed by: Terry Shah DO (01/30/2020 2:07 PM) [id number] DICTATED and SIGNED BY: TERRY SHAH DO DATE: 01/30/20 1407 [facility] [address] [place], [place] [id number] IMAGING REPORT Signed PATIENT: DONNIE MERRITT ACCOUNT: [id number] : 1990 LOCATION: ER AGE: 29 SEX: M EXAM STATUS: REG ER ORD. PHYSICIAN: BISHOP DICKERSON MD REASON: CHEST PAIN-DISSECTION PROTOCOL PER ORDER PROCEDURE: CT ANGIO CHEST W ABD PEL W/ STUDY: CT angiography of the chest, abdomen and pelvis with and without contrast INDICATION: Chest pain. Dissection. COMPARISON: Correlation is made to the CT abdomen/pelvis from 07/07/2019 TECHNIQUE: Helical CT angiography of the chest, abdomen and pelvis with imaging performed both prior to and after the intravenous administration of 90 cc Omnipaque 350. Multiplanar 3D MIP reconstructions were obtained. One or more of the following individualized dose reduction techniques were utilized for this examination: 1. Automated exposure control 2. Adjustment of the mA and/or kV according to patient size 3. Use of iterative reconstruction technique. FINDINGS: VASCULATURE: The visualized great vessels are patent. No aortic dissection or aneurysm throughout the chest or abdomen. Widely patent iliofemoral system. Patent celiac, SMA, renal artery and MIGUEL origins. A few pulmonary emboli identified within segmental/subsegmental branches to both lower lobes. No main or lobar pulmonary embolism. The interventricular septum is midline but not overtly deviated. CHEST/ABDOMEN/PELVIS: Mildly prominent right hilar lymph node on image 36 series 5 measuring around 1 cm short axis. This is favored reactive given patient age. No pericardial effusion. No confluent infiltrate or suspicious pulmonary nodule. No pleural effusion or pneumothorax. The visualized thyroid is unremarkable. No axillary adenopathy. Gynecomastia. No acute or aggressive osseous process. Hepatic steatosis. Unremarkable gallbladder, pancreas, spleen and adrenal glands. The kidneys are within normal limits. Unremarkable bladder and prostate. Mild volume well-formed stool burden. Normal appendix. Mildly thickened small bowel wall at the left upper quadrant not infrequently seen in this region. No bowel obstruction. Unremarkable stomach. No lymphadenopathy. No free fluid or gas. Bone islands are noted such as within both femoral heads. Bilateral cam-type deformities, larger on the right. IMPRESSION: Vasculature: 1. A few segmental/subsegmental pulmonary emboli are seen at both lower lobes. No main or lobar pulmonary embolism. 2. No aortic dissection or aneurysm. Chest/Abdomen/Pelvis: 1. A few chronic findings, to include hepatic steatosis, as detailed in the body the report. No acute abnormality besides the pulmonary emboli. FOR INTERNAL CODING PURPOSES Critical result: Findings discussed with BISHOP DICKERSON MD on 01/30/2020 at 1535 hours. RESULT CODE: (C) Electronically signed by: ROBYN SHAW MD (01/30/2020 4:03 PM) [id number] DICTATED and SIGNED BY: ROBYN SHAW MD DATE: 01/30/20 1603 Course & Med Decision Making: Course & Med Decision Making Pertinent Labs and Imaging studies reviewed. (See chart for details) [] 29-year-old male presents with left-sided chest pain. Due to patient's significant symptoms I was concerned about aortic dissection therefore he went straight to CT. CT shows a pulmonary embolism. Patient will start Lovenox and be admitted to the hospital. I discussed the case with who will admit. Kannan Disclaimer: Kannan Disclaimer: This electronic medical record was generated, in whole or in part, using a voice recognition dictation system. Departure Departure Impression: Primary Impression: Pulmonary embolism Additional Impression: Chest pain Disposition: ADMITTED INPATIENT Admitting Physician: LILIBETH lebron) Referrals: LESLI WEI MD (PCP) Justicifation of Admission Dx: Justifications for Admission: Justification of Admission Dx: Yes BISHOP DICKERSON MD Jan 30, 2020 13:50
[2020-01-30 14:10] LABS: BASO % 0 % (0-3); EOS % 1 % (0-3); HEMATOCRIT 39.8 % (39.0-53.0); HEMOGLOBIN 13.2 g/dL (13.0-17.5); LYMPH # 1.4 x10^3/uL (1.0-4.8); LYMPH % 18 % (24-48); MEAN CORPUSCULAR HEMOGLOBIN 30 pg (25-35); MEAN CORPUSCULAR HGB CONC 33 g/dL (31-37); MEAN CORPUSCULAR VOLUME 91 fL (79-100); MONO # 0.5 x10^3/uL (0.0-1.1); MONO % 7 % (0-9); NEUT # 5.9 x10^3/uL (1.8-7.7); NEUT % 75 % (31-73); PLATELET COUNT 172 x10^3/uL (140-400); RED BLOOD COUNT 4.36 x10^6/uL (4.30-5.70); RED CELL DISTRIBUTION WIDTH 13.4 % (11.5-14.5); WHITE BLOOD COUNT 7.9 x10^3/uL (4.0-11.0)
--- NOTE | 2020-01-30 14:10 | RAD ---
EXAMINATION: PORTABLE CHEST 1V CLINICAL HISTORY: Reason: LEFT CP / Spl. Instructions: / History: EXAM DATE/TIME: 01/30/2020 1:44 PM COMPARISON: 11/21/2019 FINDINGS: Lines, tubes, and devices: None. Cardiomediastinal silhouette: Within normal limits. Lungs and pleura: No evidence of focal airspace consolidation or pleural effusion. Pulmonary vasculature unremarkable. Bones and soft tissues: No acute osseous abnormality. IMPRESSION: No evidence of acute cardiopulmonary abnormality or significant interval change. Electronically signed by: Terry Cherry DO (01/30/2020 2:07 PM) [id number]
--- NOTE | 2020-01-30 14:41 | EKG ---
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
[2020-01-30 14:55] LABS: ALBUMIN 2.8 g/dL (3.4-5.0); CALCIUM 8.1 mg/dL (8.5-10.1); CREATININE 1.1 mg/dL (0.7-1.3); GFR 95.8; POTASSIUM 3.8 mmol/L (3.5-5.1); TOTAL BILIRUBIN 0.2 mg/dL (0.2-1.0); TOTAL PROTEIN 5.6 g/dL (6.4-8.2)
[2020-01-30] MEDS ORDERED: CONTRAST GIVEN. MC PRN (15:00)
[2020-01-30] MEDS ORDERED: IOHEXOL 350 MG/ML 100 ML VIAL. IV ONE (15:00)
--- NOTE | 2020-01-30 16:06 | RAD ---
STUDY: CT angiography of the chest, abdomen and pelvis with and without contrast INDICATION: Chest pain. Dissection. COMPARISON: Correlation is made to the CT abdomen/pelvis from 07/07/2019 TECHNIQUE: Helical CT angiography of the chest, abdomen and pelvis with imaging performed both prior to and after the intravenous administration of 90 cc Omnipaque 350. Multiplanar 3D MIP reconstructions were obtained. One or more of the following individualized dose reduction techniques were utilized for this examination: 1. Automated exposure control 2. Adjustment of the mA and/or kV according to patient size 3. Use of iterative reconstruction technique. FINDINGS: VASCULATURE: The visualized great vessels are patent. No aortic dissection or aneurysm throughout the chest or abdomen. Widely patent iliofemoral system. Patent celiac, SMA, renal artery and MIGUEL origins. A few pulmonary emboli identified within segmental/subsegmental branches to both lower lobes. No main or lobar pulmonary embolism. The interventricular septum is midline but not overtly deviated. CHEST/ABDOMEN/PELVIS: Mildly prominent right hilar lymph node on image 36 series 5 measuring around 1 cm short axis. This is favored reactive given patient age. No pericardial effusion. No confluent infiltrate or suspicious pulmonary nodule. No pleural effusion or pneumothorax. The visualized thyroid is unremarkable. No axillary adenopathy. Gynecomastia. No acute or aggressive osseous process. Hepatic steatosis. Unremarkable gallbladder, pancreas, spleen and adrenal glands. The kidneys are within normal limits. Unremarkable bladder and prostate. Mild volume well-formed stool burden. Normal appendix. Mildly thickened small bowel wall at the left upper quadrant not infrequently seen in this region. No bowel obstruction. Unremarkable stomach. No lymphadenopathy. No free fluid or gas. Bone islands are noted such as within both femoral heads. Bilateral cam-type deformities, larger on the right. IMPRESSION: Vasculature: 1. A few segmental/subsegmental pulmonary emboli are seen at both lower lobes. No main or lobar pulmonary embolism. 2. No aortic dissection or aneurysm. Chest/Abdomen/Pelvis: 1. A few chronic findings, to include hepatic steatosis, as detailed in the body the report. No acute abnormality besides the pulmonary emboli. FOR INTERNAL CODING PURPOSES Critical result: Findings discussed with BISHOP DICKERSON MD on 01/30/2020 at 1535 hours. RESULT CODE: (C) Electronically signed by: ROBYN SHAW MD (01/30/2020 4:03 PM) [id number]
[2020-01-30 16:36] LABS: PROTHROMBIN TIME PATIENT 12.2 SEC (11.7-14.0)
[2020-01-30 17:30] VITALS: BP 148/73
[2020-01-30] MEDS ORDERED: ZOLPIDEM 5 MG TABLET. PO PRN (17:30)
[2020-01-30] MEDS ORDERED: fentaNYL PF VIAL 100 MCG/2 ML VIAL IVP PRN (17:30)
[2020-01-30] MEDS ORDERED: guaiFENesin ORAL 200 MG/10 ML LIQUID. PO PRN (17:30)
[2020-01-30] MEDS ORDERED: diphenhydrAMINE 50 MG/ML VIAL IVP PRN (17:30)
[2020-01-30] MEDS ORDERED: ONDANSETRON PF 4 MG/2 ML VIAL. IV PRN (17:30)
[2020-01-30] MEDS ORDERED: IBUPROFEN 400 MG TABLET. PO PRN (17:30)
[2020-01-30] MEDS ORDERED: LORazepam 0.5 MG TABLET PO PRN (17:30)
[2020-01-30] MEDS ORDERED: ACETAMINOPHEN 325 MG TABLET. PO PRN (17:30)
[2020-01-30] MEDS ORDERED: cloNIDine HCL 0.1 MG TABLET PO PRN (17:30)
[2020-01-30] MEDS ORDERED: DOCUSATE SODIUM 100 MG CAPSULE. PO PRN (17:30)
[2020-01-30] MEDS ORDERED: ACETAMINOPHEN 500 MG TABLET PO PRN (17:30)
[2020-01-30] MEDS ORDERED: traMADol 50 MG TABLET PO SCH (18:00)
--- NOTE | 2020-01-30 21:44 | PDOC1 ---
History and Physical Date of Admission Date of Admission 01 30 2020 Identification/Chief Complaint Chief Complaint My chest hurt Source Source: Chart review, Patient History of Present Illness History of Present Illness Patient is a 29-year-old gentleman with no significant past medical history who comes today complaining of chest discomfort that was over the precordial area with radiation to the arm. Patient denies any sensation of impending doom no diaphoresis no palpitations shortness of breath was reported. The patient denies association with exertion no previous symptoms consistent with angina prior to this event. Patient unfortunately is homeless at the present time and has been sleeping in the car with his significant other. Of note is that the significant other has was recently a diagnosed with pulmonary emboli and is receiving anticoagulation at the present time. Patient denies prolonged immobilization periods no weight loss no family history of hypercoagulable states were given. We were asked to admit the patient due to the finding of pulmonary embolism on imaging studies. Reassurance was provided to the patient that these were subsegmental, no hemodynamic instability was noted Past Medical History Past Medical History No pertinent past medical history Past Surgical History Past Surgical History: No pertinent history Family History Family History: No Significant Social History Smoke: No ALCOHOL: none Drugs: None Current Problem List Problem List Problems Medical Problems: (1) Chest pain Status: Acute (2) Eloped from emergency department Status: Acute (3) Pulmonary embolism Status: Acute Current Medications Current Medications Current Medications Medications (Trade) Dose Ordered Sig/Aquiles Start Time Stop Time Status Last Admin Dose Admin Acetaminophen (Tylenol) 1,000 mg PRN Q6HRS PRN 01/30/20 17:30 01/30/20 17:27 DC Clonidine HCl (Catapres) 0.1 mg PRN Q6HRS PRN 01/30/20 17:30 01/30/20 18:10 DC Diphenhydramine HCl (Benadryl) 25 mg PRN Q4HRS PRN 01/30/20 17:30 01/30/20 18:10 DC Docusate Sodium (Colace) 100 mg PRN BID PRN 01/30/20 17:30 01/30/20 18:10 DC Enoxaparin Sodium (Lovenox 100mg Syringe) 100 mg Q12HR 01/31/20 09:00 01/30/20 18:10 DC Fentanyl Citrate (Fentanyl 2ml Vial) 25 mcg PRN Q1HR PRN 01/30/20 17:30 01/30/20 18:10 DC Guaifenesin (Robitussin) 200 mg PRN Q4HRS PRN 01/30/20 17:30 01/30/20 18:10 DC Ibuprofen (Motrin) 400 mg PRN Q6HRS PRN 01/30/20 17:30 01/30/20 18:10 DC Info (CONTRAST GIVEN -- Rx MONITORING) 1 each PRN DAILY PRN 01/30/20 15:00 01/30/20 18:10 DC Iohexol (Omnipaque 350 Mg/ml) 100 ml 1X ONCE 01/30/20 15:00 01/30/20 15:01 DC 01/30/20 15:20 100 ML Lorazepam (Ativan) 0.5 mg PRN Q4HRS PRN 01/30/20 17:30 01/30/20 18:10 DC Morphine Sulfate (Morphine Sulfate) 4 mg 1X ONCE 01/30/20 13:45 01/30/20 13:58 DC 01/30/20 14:19 4 MG Ondansetron HCl (Zofran) 4 mg PRN Q4HRS PRN 01/30/20 17:30 01/30/20 18:10 DC Tramadol HCl (Ultram) 50 mg Q6HRS 01/30/20 18:00 01/30/20 18:10 DC Zolpidem Tartrate (Ambien) 5 mg PRN QHS PRN 01/30/20 17:30 01/30/20 18:10 DC Allergies Allergies Allergies Coded Allergies Type Severity Reaction Last Updated Verified Penicillins Allergy Intermediate 07/07/19 Yes amoxicillin Allergy Intermediate 07/07/19 Yes ROS Review of System CONSTITUTIONAL: No fever or chills EYES: No recent changes SKIN: No rash or itching CARDIOVASCULAR: No chest pain, syncope, palpitations, or edema RESPIRATORY: No SOB or cough GASTROINTESTINAL: No nausea, vomiting or abdominal pain NEUROLOGICAL: No headaches or weakness ENDOCRINE: No cold or heat intolerance GENITOURINARY: No urgency or frequency of urination MUSCULOSKELETAL: No back pain or joint pain LYMPHATICS: No enlarged lymph nodes PSYCHIATRIC: No anxiety or depression Physical Exam Physical Exam GEN.: No apparent distress. Alert and oriented. HEENT: Head is normocephalic, atraumatic NECK: Supple. LUNGS: Clear to auscultation. HEART: RRR, S1, S2 present. Peripheral pulses intact ABDOMEN: Soft, nontender. Positive bowel sounds. EXTREMITIES: Without any cyanosis. NEUROLOGIC: Normal speech, normal tone PSYCHIATRIC: Normal affect, normal mood. SKIN: No ulcerations Vitals Vitals Vital Signs Date Time Temp Pulse Resp B/P (MAP) Pulse Ox O2 Delivery O2 Flow Rate FiO2 01/30/20 17:30 62 148/73 (98) 97 Room Air 01/30/20 14:19 16 01/30/20 13:31 98.6 98.6 Labs Labs Laboratory Tests Test 01/30/20 13:55 01/30/20 16:50 White Blood Count 7.9 x10^3/uL (4.0-11.0) Red Blood Count 4.36 x10^6/uL (4.30-5.70) Hemoglobin 13.2 g/dL (13.0-17.5) Hematocrit 39.8 % (39.0-53.0) Mean Corpuscular Volume 91 fL (79-100) Mean Corpuscular Hemoglobin 30 pg (25-35) Mean Corpuscular Hemoglobin Concent 33 g/dL (31-37) Red Cell Distribution Width 13.4 % (11.5-14.5) Platelet Count 172 x10^3/uL (140-400) Neutrophils (%) (Auto) 75 % (31-73) Lymphocytes (%) (Auto) 18 % (24-48) Monocytes (%) (Auto) 7 % (0-9) Eosinophils (%) (Auto) 1 % (0-3) Basophils (%) (Auto) 0 % (0-3) Neutrophils # (Auto) 5.9 x10^3/uL (1.8-7.7) Lymphocytes # (Auto) 1.4 x10^3/uL (1.0-4.8) Monocytes # (Auto) 0.5 x10^3/uL (0.0-1.1) Eosinophils # (Auto) 0.0 x10^3/uL (0.0-0.7) Basophils # (Auto) 0.0 x10^3/uL (0.0-0.2) Prothrombin Time 12.2 SEC (11.7-14.0) Prothromb Time International Ratio 0.9 (0.8-1.1) Activated Partial Thromboplast Time 27 SEC (24-38) Sodium Level 142 mmol/L (136-145) Potassium Level 3.8 mmol/L (3.5-5.1) Chloride Level 108 mmol/L (98-107) Carbon Dioxide Level 28 mmol/L (21-32) Anion Gap 6 (6-14) Blood Urea Nitrogen 6 mg/dL (8-26) Creatinine 1.1 mg/dL (0.7-1.3) Estimated GFR (Cockcroft-Gault) 95.8 BUN/Creatinine Ratio 5 (6-20) Glucose Level 97 mg/dL (70-99) Calcium Level 8.1 mg/dL (8.5-10.1) Total Bilirubin 0.2 mg/dL (0.2-1.0) Aspartate Amino Transf (AST/SGOT) 22 U/L (15-37) Alanine Aminotransferase (ALT/SGPT) 25 U/L (16-63) Alkaline Phosphatase 64 U/L (46-116) Troponin I Quantitative < 0.017 ng/mL (0.000-0.055) < 0.017 ng/mL (0.000-0.055) AX-Xyy-M-Type Natriuretic Peptide 47 pg/mL (0-124) Total Protein 5.6 g/dL (6.4-8.2) Albumin 2.8 g/dL (3.4-5.0) Albumin/Globulin Ratio 1.0 (1.0-1.7) Lipase 155 U/L (73-393) Laboratory Tests Test 01/30/20 13:55 01/30/20 16:50 White Blood Count 7.9 x10^3/uL (4.0-11.0) Red Blood Count 4.36 x10^6/uL (4.30-5.70) Hemoglobin 13.2 g/dL (13.0-17.5) Hematocrit 39.8 % (39.0-53.0) Mean Corpuscular Volume 91 fL (79-100) Mean Corpuscular Hemoglobin 30 pg (25-35) Mean Corpuscular Hemoglobin Concent 33 g/dL (31-37) Red Cell Distribution Width 13.4 % (11.5-14.5) Platelet Count 172 x10^3/uL (140-400) Neutrophils (%) (Auto) 75 % (31-73) Lymphocytes (%) (Auto) 18 % (24-48) Monocytes (%) (Auto) 7 % (0-9) Eosinophils (%) (Auto) 1 % (0-3) Basophils (%) (Auto) 0 % (0-3) Neutrophils # (Auto) 5.9 x10^3/uL (1.8-7.7) Lymphocytes # (Auto) 1.4 x10^3/uL (1.0-4.8) Monocytes # (Auto) 0.5 x10^3/uL (0.0-1.1) Eosinophils # (Auto) 0.0 x10^3/uL (0.0-0.7) Basophils # (Auto) 0.0 x10^3/uL (0.0-0.2) Prothrombin Time 12.2 SEC (11.7-14.0) Prothromb Time International Ratio 0.9 (0.8-1.1) Activated Partial Thromboplast Time 27 SEC (24-38) Sodium Level 142 mmol/L (136-145) Potassium Level 3.8 mmol/L (3.5-5.1) Chloride Level 108 mmol/L (98-107) Carbon Dioxide Level 28 mmol/L (21-32) Anion Gap 6 (6-14) Blood Urea Nitrogen 6 mg/dL (8-26) Creatinine 1.1 mg/dL (0.7-1.3) Estimated GFR (Cockcroft-Gault) 95.8 BUN/Creatinine Ratio 5 (6-20) Glucose Level 97 mg/dL (70-99) Calcium Level 8.1 mg/dL (8.5-10.1) Total Bilirubin 0.2 mg/dL (0.2-1.0) Aspartate Amino Transf (AST/SGOT) 22 U/L (15-37) Alanine Aminotransferase (ALT/SGPT) 25 U/L (16-63) Alkaline Phosphatase 64 U/L (46-116) Troponin I Quantitative < 0.017 ng/mL (0.000-0.055) < 0.017 ng/mL (0.000-0.055) IR-Wmt-V-Type Natriuretic Peptide 47 pg/mL (0-124) Total Protein 5.6 g/dL (6.4-8.2) Albumin 2.8 g/dL (3.4-5.0) Albumin/Globulin Ratio 1.0 (1.0-1.7) Lipase 155 U/L (73-393) VTE Prophylaxis Ordered VTE Prophylaxis Devices: No VTE Pharmacological Prophylaxi: Yes Assessment/Plan Assessment/Plan Pulmonary embolism Chest pain secondary to the above Homelessness Plan We will start patient on Lovenox We will have case management look into his social issue Pain management Further recommendations will be based on the clinical course MALLORY GARCIA MD Jan 30, 2020 21:44
--- NOTE | 2020-01-30 21:45 | PDOC3 ---
Discharge Summary Visit Information Date of Admission: Jan 30, 2020 Date of Discharge: Jan 30, 2020 Admitting Diagnosis Comment: Pulmonary embolism Final Diagnosis Problems Medical Problems: (1) Chest pain Status: Acute (2) Eloped from emergency department Status: Acute (3) Pulmonary embolism Status: Acute Brief Hospital Course Allergies Allergies Coded Allergies Type Severity Reaction Last Updated Verified Penicillins Allergy Intermediate 07/07/19 Yes amoxicillin Allergy Intermediate 07/07/19 Yes Vital Signs Vital Signs Date Time Temp Pulse Resp B/P (MAP) Pulse Ox O2 Delivery O2 Flow Rate FiO2 01/30/20 17:30 62 148/73 (98) 97 Room Air 01/30/20 14:19 16 01/30/20 13:31 98.6 98.6 Lab Results Laboratory Tests Test 01/30/20 13:55 01/30/20 16:50 White Blood Count 7.9 x10^3/uL (4.0-11.0) Red Blood Count 4.36 x10^6/uL (4.30-5.70) Hemoglobin 13.2 g/dL (13.0-17.5) Hematocrit 39.8 % (39.0-53.0) Mean Corpuscular Volume 91 fL (79-100) Mean Corpuscular Hemoglobin 30 pg (25-35) Mean Corpuscular Hemoglobin Concent 33 g/dL (31-37) Red Cell Distribution Width 13.4 % (11.5-14.5) Platelet Count 172 x10^3/uL (140-400) Neutrophils (%) (Auto) 75 % (31-73) Lymphocytes (%) (Auto) 18 % (24-48) Monocytes (%) (Auto) 7 % (0-9) Eosinophils (%) (Auto) 1 % (0-3) Basophils (%) (Auto) 0 % (0-3) Neutrophils # (Auto) 5.9 x10^3/uL (1.8-7.7) Lymphocytes # (Auto) 1.4 x10^3/uL (1.0-4.8) Monocytes # (Auto) 0.5 x10^3/uL (0.0-1.1) Eosinophils # (Auto) 0.0 x10^3/uL (0.0-0.7) Basophils # (Auto) 0.0 x10^3/uL (0.0-0.2) Prothrombin Time 12.2 SEC (11.7-14.0) Prothromb Time International Ratio 0.9 (0.8-1.1) Activated Partial Thromboplast Time 27 SEC (24-38) Sodium Level 142 mmol/L (136-145) Potassium Level 3.8 mmol/L (3.5-5.1) Chloride Level 108 mmol/L (98-107) Carbon Dioxide Level 28 mmol/L (21-32) Anion Gap 6 (6-14) Blood Urea Nitrogen 6 mg/dL (8-26) Creatinine 1.1 mg/dL (0.7-1.3) Estimated GFR (Cockcroft-Gault) 95.8 BUN/Creatinine Ratio 5 (6-20) Glucose Level 97 mg/dL (70-99) Calcium Level 8.1 mg/dL (8.5-10.1) Total Bilirubin 0.2 mg/dL (0.2-1.0) Aspartate Amino Transf (AST/SGOT) 22 U/L (15-37) Alanine Aminotransferase (ALT/SGPT) 25 U/L (16-63) Alkaline Phosphatase 64 U/L (46-116) Troponin I Quantitative < 0.017 ng/mL (0.000-0.055) < 0.017 ng/mL (0.000-0.055) VV-Van-R-Type Natriuretic Peptide 47 pg/mL (0-124) Total Protein 5.6 g/dL (6.4-8.2) Albumin 2.8 g/dL (3.4-5.0) Albumin/Globulin Ratio 1.0 (1.0-1.7) Lipase 155 U/L (73-393) Laboratory Tests Test 01/30/20 13:55 01/30/20 16:50 White Blood Count 7.9 x10^3/uL (4.0-11.0) Red Blood Count 4.36 x10^6/uL (4.30-5.70) Hemoglobin 13.2 g/dL (13.0-17.5) Hematocrit 39.8 % (39.0-53.0) Mean Corpuscular Volume 91 fL (79-100) Mean Corpuscular Hemoglobin 30 pg (25-35) Mean Corpuscular Hemoglobin Concent 33 g/dL (31-37) Red Cell Distribution Width 13.4 % (11.5-14.5) Platelet Count 172 x10^3/uL (140-400) Neutrophils (%) (Auto) 75 % (31-73) Lymphocytes (%) (Auto) 18 % (24-48) Monocytes (%) (Auto) 7 % (0-9) Eosinophils (%) (Auto) 1 % (0-3) Basophils (%) (Auto) 0 % (0-3) Neutrophils # (Auto) 5.9 x10^3/uL (1.8-7.7) Lymphocytes # (Auto) 1.4 x10^3/uL (1.0-4.8) Monocytes # (Auto) 0.5 x10^3/uL (0.0-1.1) Eosinophils # (Auto) 0.0 x10^3/uL (0.0-0.7) Basophils # (Auto) 0.0 x10^3/uL (0.0-0.2) Prothrombin Time 12.2 SEC (11.7-14.0) Prothromb Time International Ratio 0.9 (0.8-1.1) Activated Partial Thromboplast Time 27 SEC (24-38) Sodium Level 142 mmol/L (136-145) Potassium Level 3.8 mmol/L (3.5-5.1) Chloride Level 108 mmol/L (98-107) Carbon Dioxide Level 28 mmol/L (21-32) Anion Gap 6 (6-14) Blood Urea Nitrogen 6 mg/dL (8-26) Creatinine 1.1 mg/dL (0.7-1.3) Estimated GFR (Cockcroft-Gault) 95.8 BUN/Creatinine Ratio 5 (6-20) Glucose Level 97 mg/dL (70-99) Calcium Level 8.1 mg/dL (8.5-10.1) Total Bilirubin 0.2 mg/dL (0.2-1.0) Aspartate Amino Transf (AST/SGOT) 22 U/L (15-37) Alanine Aminotransferase (ALT/SGPT) 25 U/L (16-63) Alkaline Phosphatase 64 U/L (46-116) Troponin I Quantitative < 0.017 ng/mL (0.000-0.055) < 0.017 ng/mL (0.000-0.055) PL-Xcp-S-Type Natriuretic Peptide 47 pg/mL (0-124) Total Protein 5.6 g/dL (6.4-8.2) Albumin 2.8 g/dL (3.4-5.0) Albumin/Globulin Ratio 1.0 (1.0-1.7) Lipase 155 U/L (73-393) Brief Hospital Course Mr. Joy is a 29 old male who was admitted to the hospital for treatment of his pulmonary embolism unfortunately patient about an hour after orders were placed for admission has eloped from the emergency department I was informed by the ER staff and unfortunately he was not willing to stay longer I did not see him prior to his departure Discharge Information Condition at Discharge: Comment (Left AGAINST MEDICAL ADVICE and eloped from the emergency department) Scheduled Azithromycin (Azithromycin Tablet) 250 Mg Tablet, 1 PKG PO UD for 5 Days, #6 Ref 0 2 the first day followed by 1 for days 2-5 Prescribed by: DALTON RAMSEY APRN on 11/21/197 Clindamycin Hcl (Clindamycin Hcl) 300 Mg Capsule, 1 CAP PO QID for Infection, #40 Prescribed by: RUBIO BALL D.O. on 10/19/19 1051 Cyclobenzaprine Hcl (Cyclobenzaprine Hcl) 10 Mg Tablet, 1 TAB PO TID, #21 Prescribed by: HONEY RAJAN MD on 07/07/19 1536 Naproxen (Naprosyn) 500 Mg Tablet, 1 TAB PO BID for pain, #20 Prescribed by: HONEY RAJAN MD on 07/07/19 1536 Scheduled PRN Albuterol Sulfate (Ventolin Hfa Inhaler) 18 Gm Hfa.aer.ad, 2 PUFF INH Q4HRS PRN for WHEEZING for 30 Days, #1 Ref 0 Prescribed by: DALTON RAMSEY APRN on 11/21/192146 Ondansetron Hcl (Ondansetron Hcl) 4 Mg Tablet, 1 TAB PO PRN Q6HRS PRN for NAUSEA/VOMITING for 3 Days, #10 Ref 0 Prescribed by: DALTON RAMSEY APRN on 11/21/192146 Justicifation of Admission Dx: Justifications for Admission: Justification of Admission Dx: Yes MALLORY GARCIA MD Jan 30, 2020 21:45
== END 2020-01-30 18:10 | disposition left against medical advice (07) ==
LOC: ER 13:21
DX: I26.09 Other pulmonary embolism with acute cor pulmonale (principal); R07.89 Other chest pain; R10.12 Left upper quadrant pain; R06.02 Shortness of breath; J45.909 Unspecified asthma, uncomplicated; Z88.0 Allergy status to penicillin; Z88.1 Allergy status to other antibiotic agents
CPT/HCPCS: 36415; 71045; 71275; 74177; 80053; 83690; 83880; 84484; 85025; 85610; 85730; 93005; 96372; 96374; 96375; 99285; J1650; J2270; J2405; Q9967

== ENCOUNTER 2020-02-10 14:01 | Emergency (ER) | payer SELFPAY ==
[~2020-02-10] VITALS: Ht 182.9 cm; Wt 100.0 kg
[2020-02-10 14:35] VITALS: BP 123/76
[2020-02-10] MEDS ORDERED: ERYT1OIN6 OU (15:14)
--- NOTE | 2020-02-10 15:17 | PHYS DOC ---
Past Medical History Past Medical History: Asthma, Bronchitis, IBS Additional Past Medical Histor: TENSION HEADACHES Past Surgical History: No Surgical History Smoking Status: Current Some Day Smoker Alcohol Use: None General Adult EDM: Chief Complaint: EYE PROBLEMS HPI: HPI: Patient is a 29 year old AA male who presents to the emergency department with complaints of bilateral eye redness and itching that began yesterday. He reports having some yellow pus from the inner canthus of his right eye earlier today. He denies any crusting of his eyelashes or vision changes. The patient denies any pain or recent injury. He denies any recent cough or vomiting. The patient states he is currently taking Xarelto for treatment of a PE, he denies any shortness of breath, chest pain, or hemoptysis. Review of Systems: Review of Systems: Constitutional: Denies fever or chills. [] Eyes: Denies change in visual acuity; see HPI. [] Respiratory: Denies cough or shortness of breath. [] Cardiovascular: Denies chest pain or edema. [] GI: Denies abdominal pain, nausea, or vomiting Musculoskeletal: Denies back pain or joint pain. [] Integument: Denies rash. [] Neurologic: Denies headache, focal weakness or sensory changes. [] Psychiatric: Denies depression or anxiety. [] Heart Score: Risk Factors: Risk Factors: DM, Current or recent (<one month) smoker, HTN, HLP, family history of CAD, obesity. Risk Scores: Score 0 - 3: 2.5% MACE over next 6 weeks - Discharge Home Score 4 - 6: 20.3% MACE over next 6 weeks - Admit for Clinical Observation Score 7 - 10: 72.7% MACE over next 6 weeks - Early Invasive Strategies Allergies: Allergies: Allergies Coded Allergies Type Severity Reaction Last Updated Verified Penicillins Allergy Intermediate 07/07/19 Yes amoxicillin Allergy Intermediate 07/07/19 Yes Physical Exam: PE: Constitutional: Well developed, well nourished, no acute distress, non-toxic appearance. [] HENT: Normocephalic, atraumatic, bilateral external ears normal, oropharynx moist, no oral exudates, nose normal. [] Eyes: PERRLA, EOMI, conjunctiva injected bilaterally, watery discharge bilaterally Neck: Normal range of motion, no stridor. [] Cardiovascular:Heart rate regular rhythm Lungs & Thorax: Respirations even and unlabored, no retractions, no respiratory distress Skin: Warm, dry, no erythema, no rash. [] Extremities: No cyanosis, ROM intact, no edema. [] Neurologic: Alert and oriented X 3, no focal deficits noted. [] Psychologic: Affect normal, judgement normal, mood normal. [] Current Patient Data: Vital Signs: Vital Signs Date Time Temp Pulse Resp B/P (MAP) Pulse Ox O2 Delivery O2 Flow Rate FiO2 02/10/20 14:35 97.5 64 18 123/76 (92) 100 Room Air 97.5 EKG: EKG: [] Radiology/Procedures: Radiology/Procedures: [] Course & Med Decision Making: Course & Med Decision Making Pertinent Labs and Imaging studies reviewed. (See chart for details) 29-year-old male presents to the emergency department with complaints of bilateral eye redness that is worse in the right eye. He reports itching of bilateral eyes, he denies any injury or vision changes. Most likely this is conjunctivitis, possibly bacterial or atopic. Prescription written for erythromycin eye ointment. The patient was encouraged to use tpzz-zha-bfvlpzy allergy eyedrops for itching. I encouraged him to follow-up with Dr. Nuñez tomorrow for repeat evaluation, return to the ER if symptoms worsen. Patient verbalized an understanding of home care, medications, follow-up, and return to ED instructions and was in agreement with the plan of care. [] Dragon Disclaimer: Dragon Disclaimer: This electronic medical record was generated, in whole or in part, using a voice recognition dictation system. Departure Departure Impression: Primary Impression: Acute conjunctivitis, bilateral Qualified Codes: H10.33 - Unspecified acute conjunctivitis, bilateral Disposition: 01 HOME, SELF-CARE Condition: STABLE Referrals: LESLI WEI MD (PCP) Pascual NUÑEZ MD Patient Instructions: Allergic Conjunctivitis, [id number], Conjunctivitis (Viral and Bacterial) Additional Instructions: Fill the prescription(s) and use as directed. I also would recommend an [id number] allergy eye drop for itching. Apply warm, moist washcloths to eyes needed for comfort. Recommend use of baby shampoo to wash eyelids. Follow- up with Dr. Nuñez tomorrow. Return to the emergency room if your symptoms worsen. Scripts Erythromycin Base (Erythromycin) 1 Gm Oint...g. 0.5 INCH OU QID for 5 Days, #1 TUBE 0 Refills Prov: DALTON RAMSEY [employer]PERATOR AND [employer] 02/10/20 Justicifation of Admission Dx: Justifications for Admission: Justification of Admission Dx: N/A DALTON RAMSEY OPERATOR AND [employer]IVER Feb 10, 2020 15:17
== END 2020-02-10 15:30 | disposition home or self-care (01) ==
LOC: ER 14:01
DX: H10.33 Unspecified acute conjunctivitis, bilateral (principal); J45.909 Unspecified asthma, uncomplicated; K58.9 Irritable bowel syndrome, unspecified; F17.200 Nicotine dependence, unspecified, uncomplicated; Z88.0 Allergy status to penicillin; Z88.1 Allergy status to other antibiotic agents
CPT/HCPCS: 99283

== ENCOUNTER 2020-02-29 13:55 | Emergency (ER) | payer SELFPAY ==
[~2020-02-29] VITALS: Ht 182.9 cm; Wt 104.5 kg
[~2020-02-29 13:55] MED LIST changes: +ERYT1OIN6 OU
[2020-02-29] MEDS ORDERED: HYDROcodone/APAP 5/325MG 1 TAB TABLET PO ONE (14:45)
[2020-02-29 15:01] LABS: BILIRUBIN,URINE NEGATIVE (NEG); CLARITY,URINE CLEAR; COLOR,URINE YELLOW; NITRITE,URINE NEGATIVE (NEG); PH,URINE 6.5 (<5.0-8.0); PROTEIN,URINE NEGATIVE (NEG-TRACE); UROBILINOGEN,URINE 0.2 mg/dL (0.2 mg/dL)
[2020-02-29 15:12] LABS: SQUAMOUS EPITHELIAL CELL,UR FEW /LPF
[2020-02-29 15:14] LABS: BACTERIA,URINE 0 /HPF (0-FEW); RBC,URINE 0 /HPF (0-2)
[2020-02-29 15:15] LABS: WBC,URINE RARE /HPF (0-4)
[2020-02-29 16:10] VITALS: BP 140/78
--- NOTE | 2020-02-29 16:16 | RAD ---
Scrotal ultrasound INDICATION: Left testicle pain COMPARISON: CT angiogram chest abdomen pelvis of 01/30/2020 TECHNIQUE: Grayscale, color and spectral Doppler imaging of the scrotal contents was performed FINDINGS: The right testicle measures 4.5 x 3.1 x 2.0 cm and demonstrates normal flow. The right epididymis is normal in size. It measures 1.2 cm. The left testicle measures 4.3 x 2.5 x 2.1 and demonstrates normal blood flow. The left epididymis is normal in size. It measures 0.9 cm. With Valsalva, mild prominence to some vessels in the left spermatic cord were seen, suggesting a possible early/small varicocele. In the pubic region, at the skin surface is noted a 3.3 x 4.9 x 1.2 cm hypoechoic area of focal skin thickening, compatible with localized cellulitis and possible minimal abscess. IMPRESSION: 1. Normal testicles with no evidence of torsion. 2. Pubic region cellulitis with possible small skin abscess. Correlate with clinical exam. 3. Possible early varicocele in the left spermatic cord. Electronically signed by: Iva Mosley MD (02/29/2020 4:13 PM) [facility]
--- NOTE | 2020-02-29 17:15 | PHYS DOC ---
Past Medical History Past Medical History: Asthma, Bronchitis, IBS, Other Additional Past Medical Histor: TENSION HEADACHES Past Surgical History: No Surgical History Smoking Status: Current Some Day Smoker Alcohol Use: None General Adult EDM: Chief Complaint: ABSCESS HPI: HPI: Patient is a 29 year old AA male, accompanied by his significant other, who presents the emergency department with complaints of a swollen, painful area in his pubic region that drained pus today and left testicle pain and swelling that also began today. He denies any abnormal discharge from his penis, dysuria, hematuria, lower abdominal pain, nausea, vomiting, diarrhea, fever, back pain, cough, or shortness of breath. He denies any itching of the area. He currently rates the discomfort a 9 out of 10 on the pain scale he denies any alleviating factors, the pain in his pubic area and his left testicle increased with palpation. He denies any recent injury to his left testicle. Review of Systems: Review of Systems: Constitutional: Denies fever or chills. [] Respiratory: Denies cough or shortness of breath. [] GI: Denies abdominal pain, nausea, vomiting, or diarrhea. [] : Denies dysuria; see HPI. [] Musculoskeletal: Denies back pain or joint pain. [] Integument: Denies rash. [] Neurologic: Denies headache Complete ROS is negative unless otherwise stated in the HPI. Heart Score: Risk Factors: Risk Factors: DM, Current or recent (<one month) smoker, HTN, HLP, family history of CAD, obesity. Risk Scores: Score 0 - 3: 2.5% MACE over next 6 weeks - Discharge Home Score 4 - 6: 20.3% MACE over next 6 weeks - Admit for Clinical Observation Score 7 - 10: 72.7% MACE over next 6 weeks - Early Invasive Strategies Current Medications: Current Medications Medications (Trade) Dose Ordered Sig/Aquiles Start Time Stop Time Status Last Admin Dose Admin Acetaminophen/ Hydrocodone Bitart (Lortab 5/325) 1 tab 1X ONCE 02/29/20 14:45 02/29/20 14:51 DC 02/29/20 14:55 1 TAB Allergies: Allergies: Allergies Coded Allergies Type Severity Reaction Last Updated Verified Penicillins Allergy Intermediate 07/07/19 Yes amoxicillin Allergy Intermediate 07/07/19 Yes Physical Exam: PE: Constitutional: Well developed, well nourished, no acute distress, non-toxic appearance. [] HENT: Normocephalic, atraumatic, bilateral external ears normal, nose normal. [] Eyes: PERRLA, EOMI, conjunctiva normal, no discharge. [] Neck: Normal range of motion, no stridor. [] Cardiovascular:Heart rate regular rhythm Lungs & Thorax: Respirations even and unlabored, no retractions, no respiratory distress Abdomen: soft, no tenderness : No urethral erythema, left testicle tender to palpation without swelling, warmth, or erythema; right testicle nontender Skin: Warm, dry; 1.5 cm diameter indurated and erythemic area noted to pubis with central open area consistent with ingrown hair with cellulitis, nonfluctuant Extremities: No cyanosis, ROM intact, no edema. [] Neurologic: Alert and oriented X 3, no focal deficits noted. [] Psychologic: Affect normal, judgement normal, mood normal. [] Current Patient Data: Labs: Laboratory Tests Test 02/29/20 14:40 Urine Collection Type Unknown Urine Color Yellow Urine Clarity Clear Urine pH 6.5 (<5.0-8.0) Urine Specific [place] 1.015 (1.000-1.030) Urine Protein Negative mg/dL (NEG-TRACE) Urine Glucose (UA) Negative mg/dL (NEG) Urine Ketones (Stick) Negative mg/dL (NEG) Urine Blood Negative (NEG) Urine Nitrite Negative (NEG) Urine Bilirubin Negative (NEG) Urine Urobilinogen Dipstick 0.2 mg/dL (0.2 mg/dL) Urine Leukocyte Esterase Negative (NEG) Urine RBC 0 /HPF (0-2) Urine WBC Rare /HPF (0-4) Urine Squamous Epithelial Cells Few /LPF Urine Bacteria 0 /HPF (0-FEW) Urine Mucus Marked /LPF Vital Signs: Vital Signs Date Time Temp Pulse Resp B/P (MAP) Pulse Ox O2 Delivery O2 Flow Rate FiO2 02/29/20 16:10 80 18 140/78 (98) 98 Room Air 02/29/20 14:34 97.6 97.6 EKG: EKG: [] Radiology/Procedures: Radiology/Procedures: PROCEDURE: TESTICULAR/SCROTUM Scrotal ultrasound INDICATION: Left testicle pain COMPARISON: CT angiogram chest abdomen pelvis of 01/30/2020 TECHNIQUE: Grayscale, color and spectral Doppler imaging of the scrotal contents was performed FINDINGS: The right testicle measures 4.5 x 3.1 x 2.0 cm and demonstrates normal flow. The right epididymis is normal in size. It measures 1.2 cm. The left testicle measures 4.3 x 2.5 x 2.1 and demonstrates normal blood flow. The left epididymis is normal in size. It measures 0.9 cm. With Valsalva, mild prominence to some vessels in the left spermatic cord were seen, suggesting a possible early/small varicocele. In the pubic region, at the skin surface is noted a 3.3 x 4.9 x 1.2 cm hypoechoic area of focal skin thickening, compatible with localized cellulitis and possible minimal abscess. IMPRESSION: 1. Normal testicles with no evidence of torsion. 2. Pubic region cellulitis with possible small skin abscess. Correlate with clinical exam. 3. Possible early varicocele in the left spermatic cord. [] Course & Med Decision Making: Course & Med Decision Making Pertinent Labs and Imaging studies reviewed. (See chart for details) [] Dragon Disclaimer: Dragon Disclaimer: This electronic medical record was generated, in whole or in part, using a voice recognition dictation system. Departure Departure Impression: Primary Impression: Ingrown hair Additional Impressions: Abscess of pubic region Pain in left testicle Disposition: 01 HOME, SELF-CARE Condition: STABLE Referrals: LESLI WEI MD (PCP) Patient Instructions: Abscess, Care After, Ingrown Hair, Testicular Problems and Self-Exam Additional Instructions: Fill the prescription and use as directed. Take Tylenol or Ibuprofen as needed for pain. Apply warm moist heat to the abscess site as needed for comfort and to promote drainage. Follow up with a urologist for further evaluation of testicular pain. Follow up with your primary care doctor in 1-2 days for reevaluation. Return to the ER if symptoms worsen or you develop a fever. Scripts Doxycycline Hyclate (DOXYCYCLINE HYCLATE) 100 Mg Tablet 1 TAB PO BID, #14 TAB 0 Refills Prov: DALTON RAMSEY APRN 02/29/20 Justicifation of Admission Dx: Justifications for Admission: Justification of Admission Dx: N/A DALTON RAMSEY APRN Feb 29, 2020 17:14
[2020-02-29] MEDS ORDERED: DOXY100T PO (17:34)
[2020-02-29] MEDS ORDERED: ACETAMINOPHEN 500 MG TABLET PO ONE (18:00)
== END 2020-02-29 17:44 | disposition home or self-care (01) ==
LOC: ER 13:55
DX: L02.214 Cutaneous abscess of groin (principal); L73.1 Pseudofolliculitis barbae; N50.812 Left testicular pain; R60.0 Localized edema; J45.909 Unspecified asthma, uncomplicated; Z87.891 Personal history of nicotine dependence; Z88.0 Allergy status to penicillin; Z88.1 Allergy status to other antibiotic agents
CPT/HCPCS: 76870; 81001; 87491; 87591; 99284

== ENCOUNTER 2020-04-23 12:16 | Emergency (ER) | payer SELFPAY ==
[~2020-04-23] VITALS: Ht 182.9 cm; Wt 104.9 kg
[~2020-04-23 12:16] MED LIST changes: +DOXY100T PO
[2020-04-23] MEDS ORDERED: IV NORMAL SALINE 1000ML BAG 1,000 ML IV SCH (13:05)
[2020-04-23 13:33] LABS: BASO % 0 % (0-3); EOS # 0.1 x10^3/uL (0.0-0.7); EOS % 1 % (0-3); HEMOGLOBIN 12.8 g/dL (13.0-17.5); LYMPH % 18 % (24-48); MEAN CORPUSCULAR HEMOGLOBIN 30 pg (25-35); MEAN CORPUSCULAR HGB CONC 34 g/dL (31-37); MEAN CORPUSCULAR VOLUME 90 fL (79-100); MONO # 0.5 x10^3/uL (0.0-1.1); MONO % 9 % (0-9); NEUT # 4.1 x10^3/uL (1.8-7.7); NEUT % 72 % (31-73); PLATELET COUNT 201 x10^3/uL (140-400); RED BLOOD COUNT 4.24 x10^6/uL (4.30-5.70); RED CELL DISTRIBUTION WIDTH 13.7 % (11.5-14.5); WHITE BLOOD COUNT 5.7 x10^3/uL (4.0-11.0)
[2020-04-23 13:41] LABS: PROTHROMBIN TIME PATIENT 14.3 SEC (11.7-14.0)
[2020-04-23] MEDS ORDERED: fentaNYL PF VIAL 100 MCG/2 ML VIAL IVP ONE (14:00)
--- NOTE | 2020-04-23 14:00 | PHYS DOC ---
Past Medical History Past Medical History: Asthma, Bronchitis, IBS, Other Additional Past Medical Histor: TENSION HEADACHES, PE Past Surgical History: No Surgical History Smoking Status: Never Smoker Alcohol Use: None General Adult EDM: Chief Complaint: ABDOMINAL PAIN HPI: HPI: Patient is a 29 year old male who presents with states that back in January he was diagnosed with a PE on the left side and he is on Xarelto. He states that he has had chronic pain on the left and upper female side of his abdomen that is intermittent. But he states it is more continuous it is sharp or stabbing type pain. He states is more so on the right side. He states it does hurt when he takes a deep breath. He states he is short of breath. He denies abdominal pain, nausea, vomiting, diarrhea, headache, dizziness, syncope, numbness or tingling, focal weakness, palpitations, fever, chest pain. He also has a history of IBS, tension headache, asthma, bronchitis. Review of Systems: Review of Systems: Constitutional: Denies fever or chills. [] Eyes: Denies change in visual acuity. [] HENT: Denies nasal congestion or sore throat. [] Respiratory: Denies cough. + shortness of breath. [] Cardiovascular: +Intermittent right chest pain or denies edema. [] GI: + Generalized abdominal pain, denies nausea, vomiting, bloody stools or diarrhea. [] : Denies dysuria. [] Musculoskeletal: Denies back pain or joint pain. [] Integument: Denies rash. [] Neurologic: Denies headache, focal weakness or sensory changes. [] Endocrine: Denies polyuria or polydipsia. [] Lymphatic: Denies swollen glands. [] Psychiatric: Denies depression or anxiety. [] Heart Score: Risk Factors: Risk Factors: DM, Current or recent (<one month) smoker, HTN, HLP, family history of CAD, obesity. Risk Scores: Score 0 - 3: 2.5% MACE over next 6 weeks - Discharge Home Score 4 - 6: 20.3% MACE over next 6 weeks - Admit for Clinical Observation Score 7 - 10: 72.7% MACE over next 6 weeks - Early Invasive Strategies Current Medications: Current Medications Medications (Trade) Dose Ordered Sig/Aquiles Start Time Stop Time Status Last Admin Dose Admin Fentanyl Citrate (Fentanyl 2ml Vial) 50 mcg 1X ONCE 04/23/20 14:00 04/23/20 14:01 Sodium Chloride 1,000 ml @ 1,000 mls/hr Q1H 04/23/20 13:05 04/23/20 14:04 04/23/20 13:43 1,000 MLS/HR Allergies: Allergies: Allergies Coded Allergies Type Severity Reaction Last Updated Verified Penicillins Allergy Intermediate swellind, hives 04/23/20 Yes amoxicillin Allergy Intermediate hives, swelling 04/23/20 Yes Physical Exam: PE: Constitutional: Well developed, well nourished, no acute distress, non-toxic appearance. [] HENT: Normocephalic, atraumatic, bilateral external ears normal, oropharynx moist, no oral exudates, nose normal. [] Eyes: PERRLA, EOMI, conjunctiva normal, no discharge. [] Neck: Normal range of motion, no tenderness, supple, no stridor. [] Cardiovascular:Heart rate regular rhythm, no murmur [] Lungs & Thorax: Bilateral breath sounds clear to auscultation [] Abdomen: Bowel sounds normal, soft, generalized tenderness, no masses, no pulsatile masses. [] Skin: Warm, dry, no erythema, no rash. [] Back: No tenderness, no CVA tenderness. [] Extremities: No tenderness, no cyanosis, no clubbing, ROM intact, no edema. [] Neurologic: Alert and oriented X 3, normal motor function, normal sensory function, no focal deficits noted. [] Psychologic: Affect normal, judgement normal, mood normal. [] Current Patient Data: Labs: Laboratory Tests Test 04/23/20 13:20 White Blood Count 5.7 x10^3/uL (4.0-11.0) Red Blood Count 4.24 x10^6/uL (4.30-5.70) L Hemoglobin 12.8 g/dL (13.0-17.5) L Hematocrit 38.0 % (39.0-53.0) L Mean Corpuscular Volume 90 fL (79-100) Mean Corpuscular Hemoglobin 30 pg (25-35) Mean Corpuscular Hemoglobin Concent 34 g/dL (31-37) Red Cell Distribution Width 13.7 % (11.5-14.5) Platelet Count 201 x10^3/uL (140-400) Neutrophils (%) (Auto) 72 % (31-73) Lymphocytes (%) (Auto) 18 % (24-48) L Monocytes (%) (Auto) 9 % (0-9) Eosinophils (%) (Auto) 1 % (0-3) Basophils (%) (Auto) 0 % (0-3) Neutrophils # (Auto) 4.1 x10^3/uL (1.8-7.7) Lymphocytes # (Auto) 1.0 x10^3/uL (1.0-4.8) Monocytes # (Auto) 0.5 x10^3/uL (0.0-1.1) Eosinophils # (Auto) 0.1 x10^3/uL (0.0-0.7) Basophils # (Auto) 0.0 x10^3/uL (0.0-0.2) Prothrombin Time 14.3 SEC (11.7-14.0) H Prothrombin Time INR 1.2 (0.8-1.1) H Laboratory Tests 04/23/20 13:20 Vital Signs: Vital Signs Date Time Temp Pulse Resp B/P (MAP) Pulse Ox O2 Delivery O2 Flow Rate FiO2 04/23/20 12:58 98.9 70 20 117/57 (77) 99 Room Air 98.9 EKG: EK and read by Dr. Kern as sinus rhythm and no STEMI. [] Radiology/Procedures: Radiology/Procedures: [] Impression: [facility] [address] [place], [place] [id number] IMAGING REPORT Signed PATIENT: DONNIE MERRITT ACCOUNT: [id number] : 1990 LOCATION: ER AGE: 29 SEX: M EXAM STATUS: PRE ER ORD. PHYSICIAN: CARITO BAIG APRN REASON: soa PROCEDURE: PORTABLE CHEST 1V EXAM: PORTABLE CHEST 1V INDICATION: Reason: soa / Spl. Instructions: / History: . TECHNIQUE: Single view COMPARISON: 01/30/2020 chest x-ray FINDINGS: The heart size is normal. The great vessels appear unremarkable. There is no hilar or mediastinal mass. The lungs are clear. There is no pleural effusion or pneumothorax. There are no significant osseous abnormalities. IMPRESSION: No active cardiopulmonary disease. Electronically signed by: Samantha Mosley MD (04/23/2020 2:16 PM) [id number] DICTATED and SIGNED BY: SAMANTHA MOSLEY MD DATE: 04/23/20 1416 [facility] [address] [place] [address] IMAGING REPORT Signed PATIENT: DONNIE MERRITT ACCOUNT: [id number] : 1990 LOCATION: ER AGE: 29 SEX: M EXAM STATUS: PRE ER ORD. PHYSICIAN: CARITO BAIG APRN REASON: right sided chest pain with breathing, soa, hx PE PROCEDURE: CT ANGIO CHEST W ABD PEL W/ EXAM: CT CHEST WITH CONTRAST - PULMONARY ANGIOGRAM CT ABDOMEN AND PELVIS WITH CONTRAST INDICATION: Shortness of breath, right-sided chest pain when breathing. History of PE COMPARISON: CT angiogram chest abdomen pelvis 01/30/2020 TECHNIQUE: Helical CT of the chest abdomen, and pelvis performed after the administration of 100 mL Omnipaque [address] of the chest was timed for angiographic evaluation of the pulmonary arteries per PE protocol. Coronal and sagittal 3D MIP reformations were obtained of the chest. Sagittal and coronal reformats were obtained of the abdomen and pelvis. One or more of the following individualized dose reduction techniques were utilized for this examination: 1. Automated exposure control 2. Adjustment of the mA and/or kV according to patient size 3. Use of iterative reconstruction technique. FINDINGS: CHEST: Pulmonary Arteries: Contrast bolus is adequate. There is no acute pulmonary embolism. Pulmonary emboli in the lower lobes on prior exam have resolved. Heart/Systemic Vasculature: The heart is normal in size. No pericardial effusion. Thoracic aorta is normal. Mediastinum and fito: No lymphadenopathy. Lungs and pleura: The lungs are clear aside from a 3 mm nodule along the right major fissure, likely a lymph node. No pleural effusion or pneumothorax. Airways are clear. Neck/Axilla/Body Wall: Unremarkable. Bones: No acute osseous abnormality. ABDOMEN AND PELVIS: Liver: The liver is normal in size. No focal lesion. Gallbladder/Biliary Tree: Normal. Pancreas: Normal. Spleen: Normal. Adrenal Glands: Normal. Kidneys/Ureters/Bladder: Kidneys, ureters, and bladder are normal Reproductive Organs: Prostate gland is normal. Stomach, small bowel, and colon: Stomach, small bowel, colon, and appendix are normal. Vasculature: Abdominal aorta and inferior vena cava are normal. Lymph Nodes: No lymphadenopathy. Peritoneum and retroperitoneum: No free fluid or free air Bones: Sclerotic foci in the femoral heads are likely bone islands. No acute osseous abnormality. IMPRESSION: 1. No acute pulmonary embolism. Pulmonary emboli on prior exam have resolved. 2. No acute intra-abdominal/pelvic abnormality. Electronically signed by: Hayley Moore MD (04/23/2020 3:21 PM) [id number] DICTATED and SIGNED BY: HAYLEY MOORE MD DATE: 04/23/20 1521 Course & Med Decision Making: Course & Med Decision Making Pertinent Labs and Imaging studies reviewed. (See chart for details) See HPI. Alert and oriented x4. Ambulatory with a steady gait. Abdomen is very tender throughout all quadrants. Abdomen is soft. Lungs are clear to auscultation all lobes. Vital signs within normal limits. He is 99% on room ai r. No extremity edema. Skin pink warm and dry. Speaks in full clear sentences. CT and chest x-ray show no acute findings. Patient to follow-up with primary care provider as needed. Blood work is unremarkable. Vital signs remained stable. EKG shows no acute findings. I offered the patient a inhaler or a steroid and he states that he does not want any of those medications. [] Dragon Disclaimer: Dragcody Disclaimer: This electronic medical record was generated, in whole or in part, using a voice recognition dictation system. Departure Departure Impression: Primary Impression: Chronic abdominal pain Disposition: 01 DC HOME SELF CARE/HOMELESS Condition: STABLE Referrals: LESLI WEI MD (PCP) Patient Instructions: Abdominal Pain (Nonspecific) Additional Instructions: Follow-up with primary care provider if needed. Drink plenty of fluids. CARITO BAIG BUTTERMAKER Apr 23, 2020 14:00
[2020-04-23 14:15] LABS: CALCIUM 8.9 mg/dL (8.5-10.1); GFR 106.9
--- NOTE | 2020-04-23 14:18 | RAD ---
EXAM: PORTABLE CHEST 1V INDICATION: Reason: soa / Spl. Instructions: / History: . TECHNIQUE: Single view COMPARISON: 01/30/2020 chest x-ray FINDINGS: The heart size is normal. The great vessels appear unremarkable. There is no hilar or mediastinal mass. The lungs are clear. There is no pleural effusion or pneumothorax. There are no significant osseous abnormalities. IMPRESSION: No active cardiopulmonary disease. Electronically signed by: Iva Mosley MD (04/23/2020 2:16 PM) [id number]
[2020-04-23 14:20] LABS: ALBUMIN 3.6 g/dL (3.4-5.0); ALBUMIN/GLOBULIN RATIO 1.1 (1.0-1.7); TOTAL BILIRUBIN 0.2 mg/dL (0.2-1.0); TOTAL PROTEIN 6.9 g/dL (6.4-8.2)
[2020-04-23] MEDS ORDERED: CONTRAST GIVEN. MC PRN (14:30)
[2020-04-23] MEDS ORDERED: IOHEXOL 350 MG/ML 100 ML VIAL. IV ONE (14:30)
[2020-04-23 15:21] VITALS: BP 112/63
--- NOTE | 2020-04-23 15:24 | RAD ---
EXAM: CT CHEST WITH CONTRAST - PULMONARY ANGIOGRAM CT ABDOMEN AND PELVIS WITH CONTRAST INDICATION: Shortness of breath, right-sided chest pain when breathing. History of PE COMPARISON: CT angiogram chest abdomen pelvis 01/30/2020 TECHNIQUE: Helical CT of the chest abdomen, and pelvis performed after the administration of 100 mL Omnipaque [address] of the chest was timed for angiographic evaluation of the pulmonary arteries per PE protocol. Coronal and sagittal 3D MIP reformations were obtained of the chest. Sagittal and coronal reformats were obtained of the abdomen and pelvis. One or more of the following individualized dose reduction techniques were utilized for this examination: 1. Automated exposure control 2. Adjustment of the mA and/or kV according to patient size 3. Use of iterative reconstruction technique. FINDINGS: CHEST: Pulmonary Arteries: Contrast bolus is adequate. There is no acute pulmonary embolism. Pulmonary emboli in the lower lobes on prior exam have resolved. Heart/Systemic Vasculature: The heart is normal in size. No pericardial effusion. Thoracic aorta is normal. Mediastinum and fito: No lymphadenopathy. Lungs and pleura: The lungs are clear aside from a 3 mm nodule along the right major fissure, likely a lymph node. No pleural effusion or pneumothorax. Airways are clear. Neck/Axilla/Body Wall: Unremarkable. Bones: No acute osseous abnormality. ABDOMEN AND PELVIS: Liver: The liver is normal in size. No focal lesion. Gallbladder/Biliary Tree: Normal. Pancreas: Normal. Spleen: Normal. Adrenal Glands: Normal. Kidneys/Ureters/Bladder: Kidneys, ureters, and bladder are normal Reproductive Organs: Prostate gland is normal. Stomach, small bowel, and colon: Stomach, small bowel, colon, and appendix are normal. Vasculature: Abdominal aorta and inferior vena cava are normal. Lymph Nodes: No lymphadenopathy. Peritoneum and retroperitoneum: No free fluid or free air Bones: Sclerotic foci in the femoral heads are likely bone islands. No acute osseous abnormality. IMPRESSION: 1. No acute pulmonary embolism. Pulmonary emboli on prior exam have resolved. 2. No acute intra-abdominal/pelvic abnormality. Electronically signed by: Hayley Moore MD (04/23/2020 3:21 PM) [id number]
[2020-04-23 16:24] LABS: BILIRUBIN,URINE NEGATIVE (NEG); CLARITY,URINE CLEAR; COLOR,URINE YELLOW; NITRITE,URINE NEGATIVE (NEG); PH,URINE 7.5 (<5.0-8.0); PROTEIN,URINE NEGATIVE (NEG-TRACE)
[2020-04-23 16:42] LABS: BARBITURATES NEG (NEG); BENZODIAZEPINES NEG (NEG); CANNABINOIDS POS (NEG); COCAINE NEG (NEG); METHADONE NEG (NEG); OPIATES NEG (NEG); PHENCYCLIDINE NEG (NEG)
[2020-04-23 16:43] LABS: AMPHETAMINE/METHAMPHETAMINE NEG (NEG)
[2020-04-23 16:46] LABS: RBC,URINE 0 /HPF (0-2)
[2020-04-23 16:47] LABS: BACTERIA,URINE FEW /HPF (0-FEW); WBC,URINE OCC /HPF (0-4)
--- NOTE | 2020-04-25 14:04 | EKG ---
[facility] [address] [place] [address] Test Date: 2020-04-23 Test Time: 14:22:09 Pat Name: DONNIE MERRITT Department: Room: Gender: Cash Person: : 1990 Requested By: CARITO BAIG Order Number: [id number] Reading MD: Measurements Intervals Strang Rate: 61 P: 48 LA: 160 QRS: 51 QRSD: 84 T: 38 QT: 408 QTc: 416 Interpretive Statements SINUS RHYTHM OTHERWISE NORMAL ECG RI6.02 No previous ECG available for comparison
== END 2020-04-23 16:10 | disposition home or self-care (01) ==
LOC: ER 12:16
DX: G89.29 Other chronic pain (principal); R10.84 Generalized abdominal pain; R07.89 Other chest pain; R06.02 Shortness of breath; J45.909 Unspecified asthma, uncomplicated; K58.9 Irritable bowel syndrome, unspecified; Z88.0 Allergy status to penicillin; Z88.1 Allergy status to other antibiotic agents
CPT/HCPCS: 36415; 71045; 71275; 74177; 80053; 80307; 81001; 83690; 84484; 85025; 85610; 93005; 96361; 96374; 99285; J3010; J7030; Q9967

== ENCOUNTER 2021-09-05 10:06 | Emergency (ER) | payer SELFPAY ==
[~2021-09-05] VITALS: Ht 182.9 cm; Wt 100.2 kg
[~2021-09-05 10:06] MED LIST changes: +CLIN-94 PO; -CLIN300C8 PO; +CYCL10TA19 PO; -CYCL10TA2 PO
[2021-09-05 11:06] LABS: BASO % 0 % (0-3); EOS # 0.1 x10^3/uL (0.0-0.7); EOS % 1 % (0-3); HEMATOCRIT 42.6 % (39.0-53.0); HEMOGLOBIN 13.9 g/dL (13.0-17.5); LYMPH # 1.2 x10^3/uL (1.0-4.8); LYMPH % 10 % (24-48); MEAN CORPUSCULAR HEMOGLOBIN 29 pg (25-35); MEAN CORPUSCULAR HGB CONC 33 g/dL (31-37); MEAN CORPUSCULAR VOLUME 89 fL (79-100); MONO # 0.8 x10^3/uL (0.0-1.1); MONO % 7 % (0-9); NEUT # 9.2 x10^3/uL (1.8-7.7); NEUT % 82 % (31-73); PLATELET COUNT 192 x10^3/uL (140-400); RED BLOOD COUNT 4.79 x10^6/uL (4.30-5.70); RED CELL DISTRIBUTION WIDTH 14.3 % (11.5-14.5); WHITE BLOOD COUNT 11.2 x10^3/uL (4.0-11.0)
[2021-09-05] MEDS: ONDANSETRON ODT 4 MG TAB.RAPDIS. PO ONE (11:16)
[2021-09-05 11:18] LABS: CALCIUM 9.2 mg/dL (8.5-10.1); CREATININE 1.1 mg/dL (0.7-1.3); GFR 95.1; POTASSIUM 4.2 mmol/L (3.5-5.1)
--- NOTE | 2021-09-05 11:19 | PHYS DOC ---
Past Medical History Past Medical History: Asthma, Bronchitis, IBS, Other Additional Past Medical Histor: TENSION HEADACHES, PE Past Surgical History: No Surgical History Smoking Status: Current Some Day Smoker Alcohol Use: Rarely General Adult EDM: Chief Complaint: ABDOMINAL PAIN HPI: HPI: Patient is a 30-year-old male presents today with groin, testicular pain. Patient states the issue has been ongoing for approximately 6 weeks, he does state that he has frequency and burning with urination, and he has bilateral testicular pain with what he describes as swelling. Patient told nursing staff that he was at the [facility] emergency department last week and had a CT scan done and he stated to the nurse that they did not find anything wrong with him. Patient denies chest pain, shortness of breath, vomiting, or fever and chills. Patient states he does have IBS and has been having diarrhea and constipation issues for quite some time, he also states he has some nausea. Review of Systems: Review of Systems: Constitutional: Denies fever or chills. [] Eyes: Denies change in visual acuity. [] HENT: Denies nasal congestion or sore throat. [] Respiratory: Denies cough or shortness of breath. [] Cardiovascular: Denies chest pain or edema. [] GI: Denies abdominal pain, nausea, vomiting, bloody stools or diarrhea. [] : Testicular pain, painful urination, and frequency in urination denies dysuria. [] Musculoskeletal: Denies back pain or joint pain. [] Integument: Denies rash. [] Neurologic: Denies headache, focal weakness or sensory changes. [] Endocrine: Denies polyuria or polydipsia. [] Lymphatic: Denies swollen glands. [] Psychiatric: Denies depression or anxiety. [] Heart Score: C/O Chest Pain: No Risk Factors: Risk Factors: DM, Current or recent (<one month) smoker, HTN, HLP, family history of CAD, obesity. Risk Scores: Score 0 - 3: 2.5% MACE over next 6 weeks - Discharge Home Score 4 - 6: 20.3% MACE over next 6 weeks - Admit for Clinical Observation Score 7 - 10: 72.7% MACE over next 6 weeks - Early Invasive Strategies Current Medications: Current Medications Medications (Trade) Dose Ordered Sig/Aquiles Start Time Stop Time Status Last Admin Dose Admin Ondansetron HCl (Zofran Odt) 4 mg 1X ONCE 09/05/21 11:00 09/05/21 11:01 DC Allergies: Allergies: Allergies Coded Allergies Type Severity Reaction Last Updated Verified Penicillins Allergy Intermediate swellind, hives 04/23/20 Yes amoxicillin Allergy Intermediate hives, swelling 04/23/20 Yes Physical Exam: PE: Constitutional: Well developed, well nourished, no acute distress, non-toxic appearance. [] HENT: Normocephalic, atraumatic, bilateral external ears normal, oropharynx moist, no oral exudates, nose normal. [] Eyes: PERRLA, EOMI, conjunctiva normal, no discharge. [] Neck: Normal range of motion, no tenderness, supple, no stridor. [] Cardiovascular:Heart rate regular rhythm, no murmur [] Lungs & Thorax: Bilateral breath sounds clear to auscultation [] Abdomen: Bowel sounds normal, soft, no tenderness, no masses, no pulsatile masses. [] Skin: Warm, dry, no erythema, no rash. [] Back: No tenderness, no CVA tenderness. [] Extremities: No tenderness, no cyanosis, no clubbing, ROM intact, no edema. [] Neurologic: Alert and oriented X 3, normal motor function, normal sensory function, no focal deficits noted. [] Psychologic: Affect normal, judgement normal, mood normal. [] Current Patient Data: Labs: Laboratory Tests Test 09/05/21 10:30 09/05/21 11:19 White Blood Count 11.2 x10^3/uL Red Blood Count 4.79 x10^6/uL Hemoglobin 13.9 g/dL Hematocrit 42.6 % Mean Corpuscular Volume 89 fL Mean Corpuscular Hemoglobin 29 pg Mean Corpuscular Hemoglobin Concent 33 g/dL Red Cell Distribution Width 14.3 % Platelet Count 192 x10^3/uL Neutrophils (%) (Auto) 82 % Lymphocytes (%) (Auto) 10 % Monocytes (%) (Auto) 7 % Eosinophils (%) (Auto) 1 % Basophils (%) (Auto) 0 % Neutrophils # (Auto) 9.2 x10^3/uL Lymphocytes # (Auto) 1.2 x10^3/uL Monocytes # (Auto) 0.8 x10^3/uL Eosinophils # (Auto) 0.1 x10^3/uL Basophils # (Auto) 0.0 x10^3/uL Sodium Level 141 mmol/L Potassium Level 4.2 mmol/L Chloride Level 104 mmol/L Carbon Dioxide Level 31 mmol/L Anion Gap 6 Blood Urea Nitrogen 13 mg/dL Creatinine 1.1 mg/dL Estimated GFR (Cockcroft-Gault) 95.1 BUN/Creatinine Ratio 12 Glucose Level 131 mg/dL Calcium Level 9.2 mg/dL Total Bilirubin 0.3 mg/dL Aspartate Amino Transf (AST/SGOT) 20 U/L Alanine Aminotransferase (ALT/SGPT) 50 U/L Alkaline Phosphatase 87 U/L Total Protein 7.2 g/dL Albumin 3.8 g/dL Albumin/Globulin Ratio 1.1 Urine Collection Type Unknown Urine Color (Auto) Yellow Urine Turbidity Clear Urine pH (Auto) 6.5 Urine Specific [place] 1.032 Urine Protein (Auto) Negative mg/dL Urine Glucose (Auto)(UA) Negative mg/dL Urine Ketones (Auto) Negative mg/dL Urine Blood (Auto) Negative Urine Nitrite Negative Urine Bilirubin (Auto) Negative Urine Urobilinogen (Auto) 2 mg/dL Urine Leukocyte Esterase (Auto) Negative Urine RBC Occ /HPF Urine WBC 1-4 /HPF Urine Squamous Epithelial Cells Few /LPF Urine Bacteria Few /HPF Urine Mucus Slight /LPF Current Medications Medications (Trade) Dose Ordered Sig/Aquiles Route PRN Reason Start Time Stop Time Status Last Admin Dose Admin Ondansetron HCl (Zofran Odt) 4 mg 1X ONCE PO 09/05/21 11:00 09/05/21 11:01 DC 09/05/21 11:16 Vital Signs: Vital Signs Date Time Temp Pulse Resp B/P (MAP) Pulse Ox O2 Delivery O2 Flow Rate FiO2 09/05/21 10:20 97.6 85 18 133/80 (97) Room Air 97.6 EKG: EKG: [] Radiology/Procedures: Radiology/Procedures: REASON: testicular pain PROCEDURE: TESTICULAR/SCROTUM EXAM: SCROTAL SONOGRAM WITH DOPPLER. HISTORY: Testicular pain. COMPARISON: 02/29/2020. FINDINGS: Grayscale and Doppler analysis of the scrotum and contents was performed. The right testicle measures 4.6 x 2.9 x 2.2 cm. The parenchyma is homogeneous without focal lesions. The epididymis appears normal. Internal flow is normal. There is no hydrocele. The left testicle measures 4.2 x 2.8 x 2.3 cm. The parenchyma is homogeneous without focal lesions. The epididymis appears normal. Internal flow is normal. There is no significant hydrocele. The pampiniform plexus is mildly prominent with individual radicles measuring up to 3 mm. IMPRESSION: 1. Small left varicocele. Electronically signed by: Selina Mcgarry MD (09/05/2021 1:32 PM) [id number] [] Course & Med Decision Making: Course & Med Decision Making Pertinent Labs and Imaging studies reviewed. (See chart for details) 1340 reviewed radiological and laboratory results with patient. Did inform him that the ultrasound did show a varus cell in the left testicle which is causing his pain, and the treatment of choice is scrotal support. I also informed him there was bacteria and white cells noted in his urine which he states that he has had exposure to an STI so that could be the reason for the bacteria, I did give him the choice of treating him for an STI at this time or waiting till the results come back and he is requesting treatment at this time. Patient will be given ceftriaxone here in the emergency department and a prescription for doxycycline, he is to take Tylenol and ibuprofen for pain, patient will also be given a referral to urology for further management of his varicocele and he is encouraged to call for an appointment GERARDO. Patient verbalized understanding this and agreeable with the plan of care. Kannan Disclaimer: Kannan Disclaimer: This electronic medical record was generated, in whole or in part, using a voice recognition dictation system. Departure Departure Impression: Primary Impression: Left varicocele Additional Impression: Possible exposure to STD Disposition: 01 HOME / SELF CARE / HOMELESS Condition: STABLE Referrals: LESLI WEI MD (PCP) NATALIA BAJWA MD Patient Instructions: Sexually Transmitted Disease, Testicular Problems and Self-Exam Additional Instructions: Doxycycline take 1 tablet twice daily for 7 full days Tylenol and/or ibuprofen as needed for pain Follow-up with urology as soon as possible for further management of your varicocele Return here to the emergency department for increased pain, increased swelling in your testicle, blood in your urine, or development of a fever. Scripts Doxycycline Monohydrate (DOXYCYCLINE MONOHYDRATE) 100 Mg Capsule 1 CAP PO BID, #14 CAP Prov: KALIN BRICEÑO APRN 09/05/21 KALIN BRICEÑO MARKET DEVELOPMENT MANAGER Sep 05, 2021 11:19
[2021-09-05 11:24] LABS: ALBUMIN 3.8 g/dL (3.4-5.0); ALBUMIN/GLOBULIN RATIO 1.1 (1.0-1.7); TOTAL BILIRUBIN 0.3 mg/dL (0.2-1.0); TOTAL PROTEIN 7.2 g/dL (6.4-8.2)
[2021-09-05 11:38] LABS: BACTERIA,URINE FEW /HPF (0-FEW); RBC,URINE OCC /HPF (0-2)
--- NOTE | 2021-09-05 13:34 | RAD ---
EXAM: SCROTAL SONOGRAM WITH DOPPLER. HISTORY: Testicular pain. COMPARISON: 02/29/2020. FINDINGS: Grayscale and Doppler analysis of the scrotum and contents was performed. The right testicle measures 4.6 x 2.9 x 2.2 cm. The parenchyma is homogeneous without focal lesions. The epididymis appears normal. Internal flow is normal. There is no hydrocele. The left testicle measures 4.2 x 2.8 x 2.3 cm. The parenchyma is homogeneous without focal lesions. T he epididymis appears normal. Internal flow is normal. There is no significant hydrocele. The pampini form plexus is mildly prominent with individual radicles measuring up to 3 mm. IMPRESSION: 1. Small left varicocele. Electronically signed by: Selina Mcgarry MD (09/05/2021 1:32 PM) [id number]
[2021-09-05] MEDS ORDERED: DOXY-181 PO (13:50)
[2021-09-05 13:51] VITALS: BP 115/68
[2021-09-05] MEDS: cefTRIAXone IM 500 MG VIAL. IM ONE (14:18)
--- NOTE | 2021-09-08 13:57 | EKG ---
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
== END 2021-09-05 14:23 | disposition home or self-care (01) ==
LOC: ER 10:06
DX: I86.1 Scrotal varices (principal); Z20.2 Contact with and (suspected) exposure to infections with a predominantly sexual mode of transmission; J45.909 Unspecified asthma, uncomplicated; F17.200 Nicotine dependence, unspecified, uncomplicated; K58.9 Irritable bowel syndrome, unspecified; Z88.0 Allergy status to penicillin; Z88.1 Allergy status to other antibiotic agents
CPT/HCPCS: 76870; 80053; 81001; 85025; 87491; 87591; 93005; 96372; 99285; J0696

== ENCOUNTER 2021-09-29 10:06 | Emergency (ER) | payer SELFPAY ==
[~2021-09-29] VITALS: Ht 182.9 cm; Wt 102.2 kg
[~2021-09-29 10:06] MED LIST changes: +DOXY-181 PO
[2021-09-29 10:19] VITALS: BP 132/64
[2021-09-29 10:46] LABS: BACTERIA,URINE FEW /HPF (0-FEW); RBC,URINE OCC /HPF (0-2); WBC,URINE OCC /HPF (0-4)
--- NOTE | 2021-09-29 10:48 | PHYS DOC ---
Past Medical History Past Medical History: Asthma, Bronchitis, IBS, Other Additional Past Medical Histor: TENSION HEADACHES, PE Past Surgical History: No Surgical History Smoking Status: Current Some Day Smoker Alcohol Use: Rarely General Adult EDM: Chief Complaint: SEXUALLY TRANSMITTED DISEASE HPI: HPI: Patient is a 30 year old [presents to the ER with a complaint of dysuria. Patient states that he has had the symptoms and was seen here on September 05 of last month. Patient was initially treated for presumptive STI. Patient states that he had his abstain from sexual activity until this week and states that after having unprotected intercourse he had pain with ejaculation. Patient also reports pain at the bottom of his testicles which has not changed for the last 6 months. I reviewed patient's ultrasound findings and his blood work. Patient has still has not followed up with urology in the outpatient setting. Patient denies any fevers or chills. States that the pain feels more like a burning sensation at the tip of his penis after he ejaculates or he urinates. Review of Systems: Review of Systems: Constitutional: Denies fever or chills. [] Eyes: Denies change in visual acuity. [] HENT: Denies nasal congestion or sore throat. [] Respiratory: Denies cough or shortness of breath. [] Cardiovascular: Denies chest pain or edema. [] GI: Denies abdominal pain, nausea, vomiting, bloody stools or diarrhea. [] : Dysuria Musculoskeletal: Denies back pain or joint pain. [] Integument: Denies rash. [] Neurologic: Denies headache, focal weakness or sensory changes. [] Endocrine: Denies polyuria or polydipsia. [] Lymphatic: Denies swollen glands. [] Psychiatric: Denies depression or anxiety. [] Heart Score: C/O Chest Pain: No Risk Factors: Risk Factors: DM, Current or recent (<one month) smoker, HTN, HLP, family history of CAD, obesity. Risk Scores: Score 0 - 3: 2.5% MACE over next 6 weeks - Discharge Home Score 4 - 6: 20.3% MACE over next 6 weeks - Admit for Clinical Observation Score 7 - 10: 72.7% MACE over next 6 weeks - Early Invasive Strategies Allergies: Allergies: Allergies Coded Allergies Type Severity Reaction Last Updated Verified Penicillins Allergy Intermediate swellind, hives 04/23/20 Yes amoxicillin Allergy Intermediate hives, swelling 04/23/20 Yes Physical Exam: PE: Constitutional: Well developed, well nourished, no acute distress, non-toxic appearance. [] HENT: Normocephalic, atraumatic, bilateral external ears normal, oropharynx moist, no oral exudates, nose normal. [] Eyes: PERRLA, EOMI, conjunctiva normal, no discharge. [] Neck: Normal range of motion, no tenderness, supple, no stridor. [] Cardiovascular:Heart rate regular rhythm, no murmur [] Lungs & Thorax: Bilateral breath sounds clear to auscultation [] Abdomen: Bowel sounds normal, soft, no tenderness, no masses, no pulsatile mas ses. [] : Patient has no lesions no discharge. No tenderness with palpation. Cremasteric reflexes intact Skin: Warm, dry, no erythema, no rash. [] Back: No tenderness, no CVA tenderness. [] Extremities: No tenderness, no cyanosis, no clubbing, ROM intact, no edema. [] Neurologic: Alert and oriented X 3, normal motor function, normal sensory function, no focal deficits noted. [] Psychologic: Affect normal, judgement normal, mood normal. [] Current Patient Data: Vital Signs: Vital Signs Date Time Temp Pulse Resp B/P (MAP) Pulse Ox O2 Delivery O2 Flow Rate FiO2 09/29/21 10:19 98.1 86 18 132/64 (86) 97 Room Air 98.1 EKG: EKG: [] Radiology/Procedures: Radiology/Procedures: [] Course & Med Decision Making: Course & Med Decision Making Pertinent Labs and Imaging studies reviewed. (See chart for details) [] I offered the patient a CT scan patient declined stating that he does not l samy the IV contrast. I offer the patient an add-on contrast CT scan which she also declines. States he will follow-up with urology in the outpatient setting I also offer the patient an HSV test and basic blood work patient declines. Kannan Disclaimer: Kannan Disclaimer: This electronic medical record was generated, in whole or in part, using a voice recognition dictation system. Departure Departure Referrals: LESLI WEI MD (PCP) MARYANNE KONG DO Sep 29, 2021 10:48
[2021-09-29] MEDS ORDERED: IBUP-1007 PO (10:50)
== END 2021-09-29 11:19 | disposition home or self-care (01) ==
LOC: ER 10:06
DX: R30.0 Dysuria (principal); J45.909 Unspecified asthma, uncomplicated; F17.200 Nicotine dependence, unspecified, uncomplicated; Z88.0 Allergy status to penicillin; Z88.1 Allergy status to other antibiotic agents
CPT/HCPCS: 81001; 87491; 87591; 99283

== ENCOUNTER 2021-10-10 11:33 | Emergency (ER) | payer SELFPAY ==
[~2021-10-10] VITALS: Ht 182.9 cm; Wt 104.6 kg
[~2021-10-10 11:33] MED LIST changes: +IBUP-1007 PO
[2021-10-10 11:40] VITALS: BP 133/81
[2021-10-10] MEDS ORDERED: cefTRIAXone IM 500 MG VIAL. IM ONE (12:30)
[2021-10-10] MEDS ORDERED: DOXYCYCLINE HYCLATE 100 MG TABLET PO ONE (12:30)
[2021-10-10] MEDS ORDERED: LEVO500T9 PO (12:41)
--- NOTE | 2021-10-10 12:45 | PHYS DOC ---
Past Medical History Past Medical History: Asthma, Bronchitis, IBS, Other Additional Past Medical Histor: TENSION HEADACHES, PE Past Surgical History: No Surgical History Smoking Status: Current Some Day Smoker Alcohol Use: Rarely General Adult EDM: Chief Complaint: SEXUALLY TRANSMITTED DISEASE HPI: HPI: Patient is a 30 year old male who presents with concern for recurrent STI. Patient states about 1 month ago, he was treated for gonorrhea chlamydia. He took all the medications as prescribed. About 12 days after, he began to experience dysuria and lower abdominal pain. They have not gotten better since onset. Patient now also reports testicular pain. He denies discharge from the urethra, hematuria, N/V/D, fever, chills, generalized weakness. Review of Systems: Review of Systems: Constitutional: See HPI Eyes: Denies change in visual acuity, visual field deficits or discharge HENT: Denies ear pain, nasal congestion or sore throat Respiratory: Denies cough or shortness of breath Cardiovascular: Denies chest pain, palpitations or edema GI: See HPI : See HPI Musculoskeletal: Denies back pain or joint pain Integument: Denies rash or other skin lesion Neurologic: Denies headache, focal weakness or sensory changes Heart Score: C/O Chest Pain: No Current Medications: Current Medications Medications (Trade) Dose Ordered Sig/Aquiles Route PRN Reason Start Time Stop Time Status Last Admin Dose Admin Ceftriaxone Sodium (Rocephin Im) 500 mg 1X ONCE IM 10/10/21 12:30 10/10/21 12:32 DC 10/10/21 13:14 Levofloxacin (Levaquin) 500 mg 1X ONCE PO 10/10/21 12:45 10/10/21 12:46 DC 10/10/21 13:16 Allergies: Allergies: Allergies Coded Allergies Type Severity Reaction Last Updated Verified Penicillins Allergy Intermediate swellind, hives 04/23/20 Yes amoxicillin Allergy Intermediate hives, swelling 04/23/20 Yes Physical Exam: PE: Constitutional: Well developed, well nourished, no acute distress, non-toxic appearance. HENT: Normocephalic, atraumatic, bilateral external ears normal, nose normal. Eyes: EOMI, conjunctiva normal, no discharge. Neck: Normal range of motion, no stridor. Abdomen: Soft, no tenderness, no masses, no pulsatile masses. Genital: Circumcised penis without lesions or rash in genital region. No urethral discharge appreciated. No testicular masses or swelling. Pain is relieved on testicular elevation. Cremasteric reflex intact. Skin: Warm, dry, no erythema, no rash. Extremities: No cyanosis, no clubbing, ROM intact, no edema. Neurologic: Alert and oriented x4, normal motor function, normal sensory function, no focal deficits noted. Current Patient Data: Labs: Laboratory Tests Test 10/10/21 11:57 Urine Collection Type Void Urine Color (Auto) Yellow Urine Turbidity Clear Urine pH (Auto) 6.0 (<5.0-8.0) Urine Specific [place] 1.032 (1.000-1.030) Urine Protein (Auto) Negative mg/dL (Negative) Urine Glucose (Auto)(UA) Negative mg/dL (Negative) Urine Ketones (Auto) Negative mg/dL (Negative) Urine Blood (Auto) Negative (Negative) Urine Nitrite Negative (Negative) Urine Bilirubin (Auto) Negative (Negative) Urine Urobilinogen (Auto) Normal mg/dL (Normal) Urine Leukocyte Esterase (Auto) Negative (Negative) Urine RBC 0 /HPF (0-2) Urine WBC 1-4 /HPF (0-4) Urine Squamous Epithelial Cells Few /LPF Urine Bacteria Few /HPF (0-FEW) Urine Mucus Marked /LPF Vital Signs: Vital Signs Date Time Temp Pulse Resp B/P (MAP) Pulse Ox O2 Delivery O2 Flow Rate FiO2 10/10/21 11:40 98.4 82 18 133/81 (98) 99 Room Air 98.4 Course & Med Decision Making: Course & Med Decision Making Pertinent Labs and Imaging studies reviewed. (See chart for details) Patient is a 30-year-old male who was recently treated for gonorrhea/chlamydia and has return of symptoms. Additionally, he now has testicular pain. Patient will be treated with IM Rocephin here in the department and will be sent home with prescription for levofloxacin, as doxycycline failed last treatment time. Any of his partners should also be treated. Patient counseled to abstain from sexual intercourse during treatment time. Return precautions were provided. Patient understands and is agreeable to discharge plan. Dragon Disclaimer: Dragon Disclaimer: This electronic medical record was generated, in whole or in part, using a voice recognition dictation system. Departure Departure Impression: Primary Impression: STI (sexually transmitted infection) Additional Impression: Epididymitis Disposition: HOME / SELF CARE / HOMELESS Condition: STABLE Referrals: LESLI WEI MD (PCP) Patient Instructions: Epididymitis, Safe Sex, Sexually Transmitted Disease, [id number] Additional Instructions: EMERGENCY DEPARTMENT GENERAL DISCHARGE INSTRUCTIONS Thank you for coming to [facility] Emergency Department (ED) today and trusting us with you care. We trust that you had a positive experience in our Emergency Department. If you wish to speak to the department management, you may call the director at . YOUR FOLLOW UP INSTRUCTIONS ARE FOLLOWS: 1. Follow up with your primary care doctor. If you do not have a primary doctor, please ask for a resource list of physicians or clinics that may be able to assist you with follow up care. 2. The emergency provider has interpreted your imaging studies, if any were ordered. The radiology transportation specialist also reviewed them. If there is a change in the findings, you will be notified in 48 hours when at all possible. 3. If a lab test or culture has been done, your results will be reviewed and you will be notified if you need a change in treatment. 4. Follow instructions verbalized to you and refer to the printouts if needed. ADDITIONAL INSTRUCTIONS AND INFORMATION: 1. Your care today has been supervised by a physician who is specially trained in emergency care. Many problems require more than one evaluation for a complete diagnosis and treatment. We recommend that you schedule your follow up appointment as recommended to ensure complete treatment of you illness or injury. If you are unable to obtain follow up care and continue to have a problem, or if your condition worsens, we recommend that you return to the ED. 2. We are not able to safely determine your condition over the phone nor are we able to give sound medical advice over the phone. For these safety reasons, if you call for medical advice we will ask you to come to the ED for further evaluation. 3. If you have any questions regarding these discharge instructions please call the ED at . SAFETY INFORMATION: In the interest of safety, wellness, and injury prevention; we encourage you to wear your seat belt, if you smoke; quite smoking, and we encourage family to use a protective helmet for bicycling and other sporting events that present an increased risk for head injury. IF YOUR SYMPTOMS WORSEN OR NEW SYMPTOMS DEVELOP, OR YOU HAVE CONCERNS ABOUT YOUR CONDITION; OR IF YOUR CONDITION WORSENS WHILE YOU ARE WAITING FOR YOUR FOLLOW UP APPOINTMENT; EITHER CONTACT YOUR PRIMARY CARE DOCTOR, THE PHYSICIAN WHOSE NAME AND NUMBER YOU WERE GIVEN, OR RETURN TO THE ED IMMEDIATELY. Scripts Levofloxacin (LEVOFLOXACIN) 500 Mg Tablet 1 TAB PO DAILY, #9 TAB Prov: DEBBIE BARNEY 10/10/21 DEBBIE BARNEY October 10, 2021 12:44
[2021-10-10 13:05] LABS: BACTERIA,URINE FEW /HPF (0-FEW); RBC,URINE 0 /HPF (0-2)
== END 2021-10-10 13:19 | disposition home or self-care (01) ==
LOC: ER 11:33
DX: A64 Unspecified sexually transmitted disease (principal); N45.1 Epididymitis
CPT/HCPCS: 81001; 87491; 87591; 96372; 99283; J0696